=== PATIENT | male | born 1940 | race Caucasian/White ===

== ENCOUNTER → 2018-07-22 | Outpatient (CLI) | payer MEDICARE, OTHER | END | disposition home or self-care (01) | LOC: LABWHC1 17:16 | PROVIDERS: ATTEND Orthopaedic Surgery | DX: Z01.812 Encounter for preprocedural laboratory examination (principal) | CPT/HCPCS: 87070 ==

== ENCOUNTER 2018-07-29 05:44 | Inpatient (IN) | payer MEDICARE, OTHER ==
--- NOTE | 2018-07-28 14:27 | HP ---
HISTORY AND PHYSICAL DATE OF SURGERY: 07/29/2018 Saeid Suresh is a 78-year-old patient seen with symptomatic left knee osteoarthritis. Treatment options were discussed with him. He elected to proceed with left total knee arthroplasty. Consent was obtained. Medical clearance was provided by the [facility]. PAST MEDICAL HISTORY: Hypertension, [id number]-[id number] diabetes. PAST SURGICAL HISTORY: Left knee arthroscopy, carpal tunnel release. DAILY MEDICATIONS: Glucosamine, metformin. ALLERGIES: None. SOCIAL HISTORY: Denies tobacco use. PHYSICAL EVALUATION OF THE LEFT KNEE: Range of motion 0 to 120 degrees. Tenderness along the medial joint line. Crepitus medial patellofemoral compartments and range of motion. Ligaments stable. Hip rotation without pain. Distal neurovascular exam is intact. LEFT KNEE RADIOGRAPHS: Revealed severe osteoarthritic changes. IMPRESSION: 1. Left knee osteoarthritis. 2. Hypertension. 3. Sqv-nafslxu-qlrwmixjg diabetes. PLAN: Left total knee arthroplasty. MMODL / IJN: [id number] /
[2018-07-28 15:02] VITALS: BMI 27.3
[~2018-07-29 05:44] MED LIST: ACETAMINOPHEN TAB 500 MG TAB PO ONE; MELOXICAM 7.5 MG TAB PO ONE; TRANEXAMIC ACID 1,000 MG in SODIUM CHLORIDE 0.9% 100 ML IVPB PRN; TRANEXAMIC ACID 1,000 MG in SODIUM CHLORIDE 0.9% 50 ML IVPB ONE; ceFAZolin IN SWFI 2 GM/20 ML SYRINGE IVP ONE
[2018-07-29] MEDS ORDERED: HYDROmorphone 0.5 MG/0.5 ML SYRINGE IVP PRN ×4 (05:54→08:49)
[2018-07-29] MEDS ORDERED: MIDAZOLAM (PF) 2 MG/2 ML VIAL IV PRN (05:54)
[2018-07-29] MEDS ORDERED: ONDANSETRON 4 MG/2 ML VIAL IVP ONE (05:54)
[2018-07-29] MEDS ORDERED: SCOPOLAMINE 1.5MG/72HR PATCH TRANSDERM ONE (05:54)
[2018-07-29] MEDS ORDERED: DEXAMETHASONE SOD PHOSPHATE 10 MG/ML 1 ML VIAL IV ONE (05:54)
[2018-07-29] MEDS ORDERED: LIDOCAINE 1% 20 ML VIAL (10MG/ML) FOR IV START INTRADERMA PRN (05:54)
[2018-07-29] MEDS: LACTATED RINGERS 1,000 ML IV SCH (06:25)
[2018-07-29 06:28] LABS: Glucose,Whole Blood 93 mg/dL (75-99)
[2018-07-29] MEDS ORDERED: fentaNYL (PF) 50 MCG/ML 2 ML AMP IV ONE (06:40)
[2018-07-29] MEDS ORDERED: LIDOCAINE 1% INJ 10MG/ML (20 ML MDV) ONE (06:57)
[2018-07-29] MEDS ORDERED: SODIUM CHLORIDE 0.9% 100 ML BAG ONE (06:57)
[2018-07-29] MEDS ORDERED: fentaNYL (PF) 50 MCG/ML 2 ML AMP ONE (06:57)
[2018-07-29] MEDS ORDERED: PROPOFOL 10 MG/ML 20 ML VIAL IV ONE (06:57)
[2018-07-29] MEDS ORDERED: MIDAZOLAM 2 MG/2 ML VIAL ONE (06:57)
[2018-07-29] MEDS ORDERED: TRANEXAMIC ACID 1,000 MG/10 ML VIAL ONE (06:57)
[2018-07-29] MEDS ORDERED: ROPIVACAINE 246.25 MG, EPINEPHrine 0.5 MG, KETOROLAC 30 MG, cloNIDine HCL/PF 80 MCG, WA... MISCELLANE ONE ×5 (07:07)
[2018-07-29] MEDS ORDERED: ceFAZolin 3,000 MG in SODIUM CHLORIDE 0.9% IRRIGATIO 3,000 ML IRRIGATION ONE (07:34)
[2018-07-29] MEDS ORDERED: ROPIVACAINE 1,100 MG, SODIUM CHLORIDE 0.9% 500 ML 330 ML MISCELLANE PRN ×2 (07:45)
--- NOTE | 2018-07-29 07:47 | P.ONQ ---
Anesthesiology Proc Note - PNB - Peripheral Nerve Block Performed Left Adductor Canal Single Time Out Performed: Yes ([id number]) Procedure Start Time: 06:40 Procedure Stop Time: 06:50 Indication: Acute Post-Operative Pain, Dx/Pain Location (Left Knee Pain), Requested by physician Catheter: Indwelling Needle Types: On-Q Needle Size: 100mm (4") Needle Gauge: 21 Technique: Ultrasound Injectate: 0.5% Ropivacaine (see comment for volume) Blood Aspirated: No Pain Paresthesia on Injection Noted: No Resistance on Injection: Normal Events: Uneventful and Well Tolerated
[2018-07-29] MEDS ORDERED: LACTATED RINGERS 1,000 ML IV ONE (07:48)
--- NOTE | 2018-07-29 08:48 | P.OP ---
Date of Procedure: 07/29/18 Preoperative Diagnosis: Left knee osteoarthritis Postoperative Diagnosis: Left knee osteoarthritis Procedure(s) Performed: Left total knee arthroplasty Implants: 1. Depuy attune size 7 left cruciate-retaining cemented femur 2. Depuy attune 7 fixed bearing cemented tibial baseplate 3. Depuy attune size 7 fixed bearing 8 mm cruciate-retaining polyethylene tibial insert 4. Depuy attune 38 mm all polyethylene cemented patella Anesthesia: regional (Adductor canal catheter), local, spinal Surgeon: Mario Amaya Hazard Mitigation Officer #1: Dl Coffman Estimated Blood Loss (ml): 50 Pathology: other (Bone) Condition: stable Disposition: PACU Indications for Procedure: 78-year-old patient seen with symptomatic left knee osteoarthritis. After treatment options were discussed, he elected to proceed with total knee arthroplasty Operative Findings: See description of procedure Description of Procedure: Patient was taken to the operative suite after having an adductor canal catheter placed by the department of anesthesia. Patient underwent a spinal anesthetic by the department of anesthesia. Patient was given preoperative IV intake antibiotics and TXA. A well-padded tourniquet was placed about the left lower extremity. The lower extremity was then prepped and draped in the normal sterile orthopedic fashion. The extremity was elevated, a tourniquet was insufflated to 300. A standard anterior incision was made sharply through skin. Dissection was taken down through the subcutaneous soft tissues down to the extensor mechanism. A medial arthrotomy was performed, patella was everted and knee was flexed. There was advanced osteoarthritis noted. I introduced my distal intramedullary femoral drill. I then introduced the distal femoral cutting jig. Alexis TOMPKINS secured the cutting jig with 2 pins. I held retractors in position while Alexis TOMPKINS performed the distal femoral resection through the guide area we now removed her distal femoral cutting guide. We now placed our 4-in-1 femoral cutting block and positioned and it was secured with 2 pins by Alexis TOMPKINS while I held the block in position. The distal femoral finishing was now completed. A proximal tibial cutting guide was positioned. I held the guide in the appropriate position with both hands well Alexis TOMPKINS inserted stabilizing pins into the guide. Proximal tibial cut was made. We now placed a trial femoral component into position, along with an appropriate size tibial tray and insert. We now took the knee through range of motion and had full extension good flexion and good overall soft tissue balance noted. The patella was everted and stabilized with 2 towel clips held by Alexis TOMPKINS while I performed a flush with patellar quad tendon utilizing a fresh sawblade. We templated the patella, appropriate drill holes were made. An appropriate trial patella was positioned, knee was taken through full range of motion with the patella tracking very nicely. The trial patella was removed. Drill holes were made through the femoral component. All trial components were removed after marking off the appropriate rotation of the tibia. Retractors were now positioned along the proximal tibia. An appropriate keel punch was made with the appropriate size tibial guide by myself on Alexis TOMPKINS assisted by holding retractors. At this point appropriate size implants were chosen and opened. The joint was irrigated copiously with pulse lavage mechanical irrigation. The posterior capsule was infiltrated with local analgesic. The wound was irrigated with pulse lavage mechanical irrigation. We mixed antibiotic methylmethacrylate. We placed the knee into flexion. We placed multiple retractors assisted by Alexis TOMPKINS to expose the proximal tibia. Once the methyl methacrylate was ready, the tibial component was cemented into place removing any excess methylmethacrylate form by both myself and Alexis TOMPKINS. The femoral component was cemented into place removing the removing any excess methylmethacrylate performed by both myself and Alexis TOMPKINS. We then inserted the appropriate size polyethylene tibial insert. We made sure that it was locked into position. We took the knee into full extension, and then back in a flexion making sure we had removed any excess methylmethacrylate. The patellar component was then cemented down and secured with clamp. Excess methylmethacrylate removed. We kept the knee in full extension, patellar clamp in position until methylmethacrylate had hardened. Once it had hardened the patellar clamp was removed. The knee was taken through full range of motion. The patella tracked nicely. There was good soft tissue balancing. The tourniquet was now released. Additional hemostasis was achieved via electrocautery. A second gram of TXA was given. The wound again was irrigated with pulse lavage mechanical irrigation. The superficial soft tissues were infiltrated local analgesic. The extensor mechanism was repaired with Vicryl. We checked the repair with range of motion and it was stable. The subcutaneous soft tissues were repaired with Vicryl in layers. The skin was approximated with pernio/Dermabond. Sterile dressings were applied followed by loose web roll and Karri bandage. The patient was transferred to a bed, and taken to recovery in stable and satisfactory condition. Alexis TOMPKINS assisted with this complex procedure.
[2018-07-29] MEDS ORDERED: ONDANSETRON 4 MG/2 ML VIAL IVP PRN (08:49)
[2018-07-29] MEDS ORDERED: HYDROcodone/APAP 5-325MG 1 EACH TAB PO PRN (08:49)
[2018-07-29] MEDS ORDERED: NALOXONE 0.4 MG/ML 1 ML VIAL IV PRN (08:49)
--- NOTE | 2018-07-29 10:26 | XR ---
EXAMINATION TYPE: XR knee limited LT DATE OF EXAM: 07/29/2018 COMPARISON: NONE HISTORY: 78-year-old male evaluation for postoperative abnormality and alignment TECHNIQUE: AP and crosstable lateral views FINDINGS: Images show placement of left total knee arthroplasty. Both distal femoral and proximal tibial compon ents of prosthesis are well seated without periprosthetic fracture. Anterior soft tissue swelling, sc attered soft tissue air as well as intra-articular air compatible with recent operation. Alignment gr ossly anatomic. Vascular calcifications. IMPRESSION: Uncomplicated postoperative appearance left total knee arthroplasty.
[2018-07-29 11:04] LABS: Basophils % (A) 0 %; Eosinophils % (A) 1 %; HGB 12.8 gm/dL (13.0-17.5); Lymphocytes # (A) 0.5 k/uL (1.0-4.8); Lymphocytes % (A) 14 %; MCH 30.3 pg (25.0-35.0); MCHC 32.7 g/dL (31.0-37.0); MCV 92.6 fL (80.0-100.0); Mean Platelet Volume 7.5; Monocytes # (A) 0.1 k/uL (0-1.0); Monocytes % (A) 2 %; Neutrophils % (A) 82 %; Platelet Count 102 k/uL (150-450); RBC 4.21 m/uL (4.30-5.90); RDW 13.7 % (11.5-15.5); WBC 3.7 k/uL (3.8-10.6)
[2018-07-29 11:15] LABS: ALT 34 U/L (21-72); AST 32 U/L (17-59); Albumin 3.6 g/dL (3.5-5.0); Alkaline Phosphatase 77 U/L (38-126); Anion Gap 9 mmol/L; Blood Urea Nitrogen 22 mg/dL (9-20); Calcium 9.1 mg/dL (8.4-10.2); Carbon Dioxide 25 mmol/L (22-30); Chloride 107 mmol/L (98-107); Glucose 175 mg/dL (74-99); Sodium 141 mmol/L (137-145); Total Bilirubin 0.7 mg/dL (0.2-1.3); Total Protein 6.4 g/dL (6.3-8.2)
[2018-07-29 11:31] LABS: Glucose,Whole Blood 145 mg/dL (75-99)
--- NOTE | 2018-07-29 12:18 | P.CONS ---
History of Present Illness - Reason for Consult Consult date: 07/29/18 Medical Management Requesting physician: Mario Amaya - History of Present Illness This is a 78-year-old male patient presented for an elective left total knee arthroplasty. Patient has a known past medical history of prostate cancer in 2000 in which she received treatment with radiation and chemo, diabetes mellitus , osteoarthritis, carpal tunnel syndrome and neuropathy. Patient denies any history of PE, DVT or irregular heart rhythm. Patient reports he had recent stress test prior to surgery per primary care. At this time patient is resting comfortably in bed. Patient denies any chest pain or shortness of breath. Denies nausea vomiting diarrhea. Patient denies any urinary burning or frequency. Review of Systems please refer to HPI otherwise unremarkable Past Medical History Past Medical History: Cancer, Diabetes Mellitus, Osteoarthritis (OA), Prostate Disorder Additional Past Medical History / Comment(s): PVD, carpal tunnel, neuropathy, hx. prostate cancer 2000-tx. w/radiation & chemo, had recent stress test History of Any Multi-Drug Resistant Organisms: None Reported Past Surgical History: Orthopedic Surgery Additional Past Surgical History / Comment(s): arthroscopy right knee, repair of detached retina right eye, carpal tunnel right hand & trigger finger repair, cystoscopy Past Anesthesia/Blood Transfusion Reactions: No Reported Reaction Past Psychological History: No Psychological Hx Reported Smoking Status: Former smoker Past Alcohol Use History: Rare Additional Past Alcohol Use History / Comment(s): quit smoking @age 50, smoked 24 yrs. 2ppd Past Drug Use History: None Reported - Past Family History Mother Family Medical History: No Reported History Medications and Allergies Home Medications Medication Instructions Recorded Confirmed Type metFORMIN HCL [Glucophage] 500 mg PO QAM 08/20/15 07/29/18 History Finasteride [Proscar] 5 mg PO DAILY 07/23/18 07/29/18 History Gabapentin [Neurontin] 100 mg PO TID 07/23/18 07/29/18 History Glucosamine-Chondr 500-400Mg 2 tab PO DAILY 07/23/18 07/29/18 History [Ujtkyggyqqx-Hfwgzp-KOD Tab] Tamsulosin [Flomax] 0.4 mg PO BID 07/23/18 07/29/18 History Allergies Allergy/AdvReac Type Severity Reaction Status Date / Time No Known Allergies Allergy Verified 07/29/18 10:30 Physical Exam Vitals: Vital Signs Temp Pulse Pulse Resp BP Pulse Ox 07/29/18 11:55 94 L 07/29/18 09:54 98.1 F 82 111/59 95 07/29/18 09:45 93 16 113/53 94 L 07/29/18 09:30 80 18 124/61 94 L 07/29/18 09:15 86 18 143/65 92 L 07/29/18 09:03 98.2 F 86 16 118/86 94 L 07/29/18 06:55 64 16 110/55 99 07/29/18 06:17 97.9 F 68 18 131/66 98 Intake and Output 07/28/18 07/29/18 07/29/18 22:59 06:59 14:59 Intake Total 200 1101 Output Total 50 Balance 200 1051 Intake: IV 200 1101 Output: Estimated Blood Loss 50 Head normocephalic Neck supple Lungs clear to auscultation bilaterally no wheezing or crackles Heart regular rate and rhythm S1-S2, no rub or gallop Abdomen is soft nontender nondistended positive bowel sounds no hepatosplenomegaly Extremities no edema. Left knee dressing is clean dry and intact. Good color noted to toes. Neuro alert and orientated to 3 Results CBC & Chem 7: 07/29/18 10:21 07/29/18 10:21 Labs: Abnormal Lab Results - Last 24 Hours (Table) 07/29/18 07/29/18 07/29/18 Range/Units 10:21 10:21 11:29 WBC 3.7 L (3.8-10.6) k/uL RBC 4.21 L (4.30-5.90) m/uL Hgb 12.8 L (13.0-17.5) gm/dL Plt Count 102 L (150-450) k/uL Lymphocytes # 0.5 L (1.0-4.8) k/uL BUN 22 H (9-20) mg/dL Glucose 175 H (74-99) mg/dL POC Glucose (mg/dL) 145 H (75-99) mg/dL Assessment and Plan Assessment: 1. Status post total left knee arthroplasty. Patient is currently postop day 0. Pain meds per the ortho surgical services 2. History of diabetes mellitus. Sliding scale insulin ordered 3. History of prostate cancer. Patient states he received treatment in 2000 4. History of osteoarthritis 5. History of carpal tunnel DVT prophylaxis Lovenox. GI prophylaxis Protonix Planning discharge to rehab Thank you for this consultation we will continue to follow patient closely throughout Time with Patient: Greater than 30 (Greater than 60% of the total time spent in counseling and coordination of care. I performed an examination of the patient and discussed their management with the Nurse Practitioner. I have reviewed the Nurse Practitioner's notes and agree with the documented findings and plan of care)
[2018-07-29] MEDS: INSULIN ASPART (NovoLOG) 100 UNIT/ML VIAL SQ SCH ×3 (13:37→21:18)
[2018-07-29] MEDS: GABAPENTIN 100 MG CAP PO SCH ×2 (16:37→22:39)
[2018-07-29 16:52] LABS: Glucose,Whole Blood 109 mg/dL (75-99)
[2018-07-29] MEDS: ceFAZolin IN SWFI 2 GM/20 ML SYRINGE IVP SCH ×2 (17:04→22:52)
[2018-07-29] MEDS: SODIUM CHLORIDE 0.9% 1,000 ML IV SCH (17:05)
[2018-07-29 20:13] LABS: Glucose,Whole Blood 136 mg/dL (75-99)
[2018-07-29] MEDS: TAMSULOSIN 0.4 MG CAP.ER.24H PO SCH (21:17)
[2018-07-29] MEDS: ENOXAPARIN 30 MG/0.3 ML SYRINGE SQ SCH (21:17)
[2018-07-29] MEDS: SENNOSIDES-DOCUSATE SODIUM 1 EACH TAB PO SCH (21:18)
[2018-07-30 07:15] LABS: Glucose,Whole Blood 100 mg/dL (75-99)
[2018-07-30 07:37] LABS: Basophils % (A) 0 %; Eosinophils # (A) 0.1 k/uL (0-0.7); Eosinophils % (A) 2 %; HCT 34.1 % (39.0-53.0); HGB 11.3 gm/dL (13.0-17.5); Lymphocytes # (A) 0.9 k/uL (1.0-4.8); Lymphocytes % (A) 18 %; MCH 30.6 pg (25.0-35.0); MCHC 33.2 g/dL (31.0-37.0); MCV 92.1 fL (80.0-100.0); Mean Platelet Volume 7.2; Monocytes # (A) 0.4 k/uL (0-1.0); Monocytes % (A) 8 %; Neutrophils # (A) 3.4 k/uL (1.3-7.7); Neutrophils % (A) 71 %; Platelet Count 100 k/uL (150-450); RDW 13.9 % (11.5-15.5); WBC 4.8 k/uL (3.8-10.6)
[2018-07-30 07:59] LABS: ALT 28 U/L (21-72); AST 26 U/L (17-59); Albumin 3.3 g/dL (3.5-5.0); Alkaline Phosphatase 53 U/L (38-126); Anion Gap 8 mmol/L; Blood Urea Nitrogen 22 mg/dL (9-20); Calcium 8.7 mg/dL (8.4-10.2); Carbon Dioxide 26 mmol/L (22-30); Chloride 107 mmol/L (98-107); Glucose 99 mg/dL (74-99); Potassium 4.3 mmol/L (3.5-5.1); Sodium 141 mmol/L (137-145); Total Bilirubin 1.3 mg/dL (0.2-1.3); Total Protein 5.9 g/dL (6.3-8.2)
[2018-07-30] MEDS: SODIUM CHLORIDE 0.9% 1,000 ML IV SCH (08:26)
[2018-07-30] MEDS: LACTATED RINGERS 1,000 ML IV SCH (08:26)
[2018-07-30] MEDS: INSULIN ASPART (NovoLOG) 100 UNIT/ML VIAL SQ SCH ×4 (08:26→21:11)
[2018-07-30] MEDS: ACETAMINOPHEN TAB 325 MG TAB PO PRN ×2 (08:38→15:22)
[2018-07-30] MEDS: GABAPENTIN 100 MG CAP PO SCH ×3 (08:38→21:12)
[2018-07-30] MEDS: PANTOPRAZOLE 40 MG TABLET PO SCH (08:38)
[2018-07-30] MEDS: metFORMIN 500 MG TAB PO SCH (08:38)
[2018-07-30] MEDS: TAMSULOSIN 0.4 MG CAP.ER.24H PO SCH ×2 (08:38→20:57)
[2018-07-30] MEDS: ENOXAPARIN 30 MG/0.3 ML SYRINGE SQ SCH (08:38)
[2018-07-30] MEDS: FINASTERIDE 5 MG TAB PO SCH (08:38)
--- NOTE | 2018-07-30 08:51 | P.PN ---
Progress Note - Text Progress Note Date: 07/30/18 78-year-old male status post left total knee arthroplasty with abductor canal catheter. Patient doing well no motor sensory deficits. He's been ambulating well up and down the [place] multiple times today. Tolerating diet. Patient is to be discharged home today.
--- NOTE | 2018-07-30 11:03 | P.PN ---
Subjective Progress Note Date: 07/30/18 Principal diagnosis: Status post left total knee arthroplasty Patient evaluated at bedside today, his resting comfortably. Patient has worked with physical therapy. He admits to stiffness in the knee in the knee. Denies any fevers or chills. Objective - Vital Signs Vital signs: Vital Signs Temp 98.6 F 07/30/18 08:55 Pulse 71 07/30/18 08:55 Resp 16 07/30/18 08:55 BP 99/59 07/30/18 08:55 Pulse Ox 94 L 07/30/18 08:55 Intake & Output 07/29/18 07/30/18 07/30/18 18:59 06:59 18:59 Intake Total 1401 200 220 Output Total 470 Balance 931 200 220 Intake: IV 1401 Sodium Chloride 0.9% 1, 300 000 ml @ 50 mls/hr IV . Q20H [place] Rx#:[id number] Intake, IV Titration 200 Amount Sodium Chloride 0.9% 1, 200 000 ml @ 50 mls/hr IV . Q20H [place] Rx#:[id number] Oral 220 Output: Urine 420 Estimated Blood Loss 50 Other: Voiding Method Toilet Urinal # Voids 1 - Exam Left lower extremity: Incision is clean, dry, and intact. The exofin fusion tape is in good condition. There is minimal soft tissue swelling and ecchymosis surrounding the medial and lateral aspects of the incision. Calf is soft, no tenderness with palpation. Plantar flexion, dorsiflexion, EHL, FHL are intact. Sensory exam to light touch throughout the extremity is intact, dorsal pedis pulses 2+. - Labs CBC & Chem 7: 07/30/18 07:21 07/30/18 07:21 Labs: Abnormal Lab Results - Last 24 Hours (Table) 07/29/18 07/29/18 07/29/18 Range/Units 10:21 10:21 11:29 WBC 3.7 L (3.8-10.6) k/uL RBC 4.21 L (4.30-5.90) m/uL Hgb 12.8 L (13.0-17.5) gm/dL Hct (39.0-53.0) % Plt Count 102 L (150-450) k/uL Lymphocytes # 0.5 L (1.0-4.8) k/uL BUN 22 H (9-20) mg/dL Glucose 175 H (74-99) mg/dL POC Glucose (mg/dL) 145 H (75-99) mg/dL Total Protein (6.3-8.2) g/dL Albumin (3.5-5.0) g/dL 07/29/18 07/29/18 07/30/18 Range/Units 16:51 20:11 07:13 WBC (3.8-10.6) k/uL RBC (4.30-5.90) m/uL Hgb (13.0-17.5) gm/dL Hct (39.0-53.0) % Plt Count (150-450) k/uL Lymphocytes # (1.0-4.8) k/uL BUN (9-20) mg/dL Glucose (74-99) mg/dL POC Glucose (mg/dL) 109 H 136 H 100 H (75-99) mg/dL Total Protein (6.3-8.2) g/dL Albumin (3.5-5.0) g/dL 07/30/18 07/30/18 Range/Units 07:21 07:21 WBC (3.8-10.6) k/uL RBC 3.70 L (4.30-5.90) m/uL Hgb 11.3 L (13.0-17.5) gm/dL Hct 34.1 L (39.0-53.0) % Plt Count 100 L (150-450) k/uL Lymphocytes # 0.9 L (1.0-4.8) k/uL BUN 22 H (9-20) mg/dL Glucose (74-99) mg/dL POC Glucose (mg/dL) (75-99) mg/dL Total Protein 5.9 L (6.3-8.2) g/dL Albumin 3.3 L (3.5-5.0) g/dL Assessment and Plan Plan: Assessment: 1. Postop day #1 status post left total knee arthroplasty Plan: Pain control, continue current medication GI and DVT prophylaxis, discontinue Lovenox, will start aspirin 325 mg twice a day Wound Care instructions discussed Ice and elevate often, daily dressing changes Continue use of CPM and incentive spirometer Medical recommendations Discharge planning: Patient will be discharged to rehab on 09/29/2018 Time with Patient: Less than 30
[2018-07-30 11:38] LABS: Glucose,Whole Blood 161 mg/dL (75-99)
[2018-07-30] MEDS: FERROUS SULFATE 325 MG TAB PO SCH ×2 (12:25→20:57)
--- NOTE | 2018-07-30 12:37 | P.PN ---
Subjective Progress Note Date: 07/30/18 This is a 78-year-old male patient presented for an elective left total knee arthroplasty. Patient has a known past medical history of prostate cancer in 2000 in which she received treatment with radiation and chemo, diabetes mellitus , osteoarthritis, carpal tunnel syndrome and neuropathy. Patient denies any history of PE, DVT or irregular heart rhythm. Patient reports he had recent stress test prior to surgery per primary care. At this time patient is resting comfortably in bed. Patient denies any chest pain or shortness of breath. Denies nausea vomiting diarrhea. Patient denies any urinary burning or frequency. On 07/30/2018 patient remains alert and oriented 3. Patient is reporting increased pain to left knee. Compared to yesterday. Patient has been up ambulating. She denies chest pain or shortness breath. Patient denies nausea vomiting or diarrhea. Patient's hemoglobin low at 11.3 will add ferrous sulfate at this time. Patient planning to be DC'd to rehab possibly tomorrow Objective - Vital Signs Vital signs: Vital Signs Temp 98.6 F 07/30/18 08:55 Pulse 71 07/30/18 08:55 Resp 16 07/30/18 08:55 BP 99/59 07/30/18 08:55 Pulse Ox 94 L 07/30/18 08:55 Intake & Output 07/29/18 07/30/18 07/30/18 18:59 06:59 18:59 Intake Total 1401 200 220 Output Total 470 Balance 931 200 220 Intake: IV 1401 Sodium Chloride 0.9% 1, 300 000 ml @ 50 mls/hr IV . Q20H [place] Rx#:[id number] Intake, IV Titration 200 Amount Sodium Chloride 0.9% 1, 200 000 ml @ 50 mls/hr IV . Q20H [place] Rx#:[id number] Oral 220 Output: Urine 420 Estimated Blood Loss 50 Other: Voiding Method Toilet Urinal # Voids 1 - Exam Head normocephalic Neck supple Lungs clear to auscultation bilaterally no wheezing or crackles Heart regular rate and rhythm S1-S2, no rub or gallop Abdomen is soft nontender nondistended positive bowel sounds no hepatosplenomegaly Extremities no edema. Left knee dressing is clean dry and intact. Good color noted to toes. Neuro alert and orientated to 3 - Labs CBC & Chem 7: 07/30/18 07:21 07/30/18 07:21 Labs: Abnormal Lab Results - Last 24 Hours (Table) 07/29/18 07/29/18 07/30/18 Range/Units 16:51 20:11 07:13 RBC (4.30-5.90) m/uL Hgb (13.0-17.5) gm/dL Hct (39.0-53.0) % Plt Count (150-450) k/uL Lymphocytes # (1.0-4.8) k/uL BUN (9-20) mg/dL POC Glucose (mg/dL) 109 H 136 H 100 H (75-99) mg/dL Total Protein (6.3-8.2) g/dL Albumin (3.5-5.0) g/dL 07/30/18 07/30/18 07/30/18 Range/Units 07:21 07:21 11:36 RBC 3.70 L (4.30-5.90) m/uL Hgb 11.3 L (13.0-17.5) gm/dL Hct 34.1 L (39.0-53.0) % Plt Count 100 L (150-450) k/uL Lymphocytes # 0.9 L (1.0-4.8) k/uL BUN 22 H (9-20) mg/dL POC Glucose (mg/dL) 161 H (75-99) mg/dL Total Protein 5.9 L (6.3-8.2) g/dL Albumin 3.3 L (3.5-5.0) g/dL Assessment and Plan Assessment: 1. Status post total left knee arthroplasty. Patient is currently postop day 1. Pain meds per the ortho surgical services 2. History of diabetes mellitus. Sliding scale insulin ordered 3. History of prostate cancer. Patient states he received treatment in 2000 4. History of osteoarthritis 5. History of carpal tunnel 6. Anemia. will check iron studies. Will start patient on ferrous sulfate DVT prophylaxis Lovenox. GI prophylaxis Protonix Planning discharge to rehab Thank you for this consultation we will continue to follow patient closely throughout
[2018-07-30 16:45] LABS: Glucose,Whole Blood 130 mg/dL (75-99)
[2018-07-30] MEDS: ASPIRIN 325 MG TAB PO SCH (18:29)
[2018-07-30 20:22] LABS: Glucose,Whole Blood 167 mg/dL (75-99)
[2018-07-30] MEDS: SENNOSIDES-DOCUSATE SODIUM 1 EACH TAB PO SCH (20:56)
[2018-07-31 01:09] VITALS: RESP 16
[2018-07-31] MEDS: SODIUM CHLORIDE 0.9% 1,000 ML IV SCH ×2 (01:24→20:58)
[2018-07-31 07:08] LABS: Glucose,Whole Blood 106 mg/dL (75-99)
[2018-07-31] MEDS: LACTATED RINGERS 1,000 ML IV SCH (08:00)
[2018-07-31] MEDS: INSULIN ASPART (NovoLOG) 100 UNIT/ML VIAL SQ SCH ×4 (08:00→21:02)
[2018-07-31 08:21] LABS: ALT 28 U/L (21-72); AST 24 U/L (17-59); Albumin 3.1 g/dL (3.5-5.0); Alkaline Phosphatase 55 U/L (38-126); Anion Gap 6 mmol/L; Blood Urea Nitrogen 20 mg/dL (9-20); Calcium 8.9 mg/dL (8.4-10.2); Carbon Dioxide 26 mmol/L (22-30); Chloride 107 mmol/L (98-107); Glucose 109 mg/dL (74-99); Potassium 4.2 mmol/L (3.5-5.1); Sodium 139 mmol/L (137-145); Total Bilirubin 1.6 mg/dL (0.2-1.3); Total Protein 5.8 g/dL (6.3-8.2)
[2018-07-31] MEDS: GABAPENTIN 100 MG CAP PO SCH ×3 (08:42→21:01)
[2018-07-31] MEDS: ASPIRIN 325 MG TAB PO SCH (08:42)
[2018-07-31] MEDS: FERROUS SULFATE 325 MG TAB PO SCH ×2 (08:43→20:02)
[2018-07-31] MEDS: metFORMIN 500 MG TAB PO SCH (08:43)
[2018-07-31] MEDS: FINASTERIDE 5 MG TAB PO SCH (08:43)
[2018-07-31] MEDS: TAMSULOSIN 0.4 MG CAP.ER.24H PO SCH ×2 (08:43→20:01)
[2018-07-31] MEDS: PANTOPRAZOLE 40 MG TABLET PO SCH (08:45)
[2018-07-31] MEDS: HYDROcodone/APAP 5-325MG 1 EACH TAB PO PRN ×2 (10:10→21:02)
--- NOTE | 2018-07-31 10:42 | P.PN ---
Subjective Progress Note Date: 07/31/18 Principal diagnosis: Status post left total knee arthroplasty Patient evaluated at bedside today, his resting comfortably. Patient has worked with physical therapy. He admits to stiffness in the knee in the knee. Denies any fevers or chills. Objective - Vital Signs Vital signs: Vital Signs Temp 98.9 F 07/31/18 08:04 Pulse 95 07/31/18 08:04 Resp 16 07/30/18 23:49 BP 118/56 07/31/18 08:04 Pulse Ox 93 L 07/31/18 08:04 Intake & Output 07/30/18 07/31/18 07/31/18 18:59 06:59 18:59 Intake Total 220 280 Output Total 1130 Balance -910 280 Intake: Oral 220 280 Output: Urine 1130 - Exam Left lower extremity: Incision is clean, dry, and intact. The exofin fusion tape is in good condition. There is minimal soft tissue swelling and ecchymosis surrounding the medial and lateral aspects of the incision. Calf is soft, no tenderness with palpation. Plantar flexion, dorsiflexion, EHL, FHL are intact. Sensory exam to light touch throughout the extremity is intact, dorsal pedis pulses 2+. - Labs CBC & Chem 7: 07/30/18 07:21 07/31/18 07:11 Labs: Abnormal Lab Results - Last 24 Hours (Table) 07/30/18 07/30/18 07/30/18 Range/Units 11:36 16:44 20:21 Creatinine (0.66-1.25) mg/dL Glucose (74-99) mg/dL POC Glucose (mg/dL) 161 H 130 H 167 H (75-99) mg/dL Total Bilirubin (0.2-1.3) mg/dL Total Protein (6.3-8.2) g/dL Albumin (3.5-5.0) g/dL 07/31/18 07/31/18 Range/Units 07:07 07:11 Creatinine 0.60 L (0.66-1.25) mg/dL Glucose 109 H (74-99) mg/dL POC Glucose (mg/dL) 106 H (75-99) mg/dL Total Bilirubin 1.6 H (0.2-1.3) mg/dL Total Protein 5.8 L (6.3-8.2) g/dL Albumin 3.1 L (3.5-5.0) g/dL Assessment and Plan Plan: Assessment: 1. Postop day #2 status post left total knee arthroplasty Plan: Pain control, continue current medication GI and DVT prophylaxis, discontinue Lovenox, will start aspirin 325 mg twice a day Wound Care instructions discussed Ice and elevate often, daily dressing changes Continue use of CPM and incentive spirometer Medical recommendations Discharge planning: Likely discharge to rehab tomorrow Time with Patient: Less than 30
[2018-07-31 11:12] LABS: Iron Saturation 9.97 (15.00-50.00)
[2018-07-31 11:45] LABS: Glucose,Whole Blood 114 mg/dL (75-99)
--- NOTE | 2018-07-31 11:57 | P.PN ---
Subjective Progress Note Date: 07/31/18 This is a 78-year-old male patient presented for an elective left total knee arthroplasty. Patient has a known past medical history of prostate cancer in 2000 in which she received treatment with radiation and chemo, diabetes mellitus , osteoarthritis, carpal tunnel syndrome and neuropathy. Patient denies any history of PE, DVT or irregular heart rhythm. Patient reports he had recent stress test prior to surgery per primary care. At this time patient is resting comfortably in bed. Patient denies any chest pain or shortness of breath. Denies nausea vomiting diarrhea. Patient denies any urinary burning or frequency. On 07/30/2018 patient remains alert and oriented 3. Patient is reporting increased pain to left knee. Compared to yesterday. Patient has been up ambulating. She denies chest pain or shortness breath. Patient denies nausea vomiting or diarrhea. Patient's hemoglobin low at 11.3 will add ferrous sulfate at this time. Patient planning to be DC'd to rehab possibly tomorrow On 07/31/2017 patient is alert and oriented 3. Patient is still complaining of some left knee pain with ambulation. Patient did report he had bowel movement this a.m. patient denies chest pain or shortness breath. Patient denies nausea vomiting or diarrhea any urinary burning or frequency Objective - Vital Signs Vital signs: Vital Signs Temp 98.9 F 07/31/18 08:04 Pulse 95 07/31/18 08:04 Resp 16 07/30/18 23:49 BP 118/56 07/31/18 08:04 Pulse Ox 93 L 07/31/18 08:04 Intake & Output 07/30/18 07/31/18 07/31/18 18:59 06:59 18:59 Intake Total 220 280 Output Total 1130 Balance -910 280 Intake: Oral 220 280 Output: Urine 1130 - Exam Head normocephalic Neck supple Lungs clear to auscultation bilaterally no wheezing or crackles Heart regular rate and rhythm S1-S2, no rub or gallop Abdomen is soft nontender nondistended positive bowel sounds no hepatosplenomegaly Extremities no edema. Left knee dressing is clean dry and intact. Good color noted to toes. Neuro alert and orientated to 3 - Labs CBC & Chem 7: 07/30/18 07:21 07/31/18 07:11 Labs: Abnormal Lab Results - Last 24 Hours (Table) 07/30/18 07/30/18 07/31/18 Range/Units 16:44 20:21 07:07 Creatinine (0.66-1.25) mg/dL Glucose (74-99) mg/dL POC Glucose (mg/dL) 130 H 167 H 106 H (75-99) mg/dL Iron (65-175) ug/dL Iron Saturation (15.00-50.00) Total Bilirubin (0.2-1.3) mg/dL Total Protein (6.3-8.2) g/dL Albumin (3.5-5.0) g/dL 07/31/18 07/31/18 07/31/18 Range/Units 07:11 07:11 11:43 Creatinine 0.60 L (0.66-1.25) mg/dL Glucose 109 H (74-99) mg/dL POC Glucose (mg/dL) 114 H (75-99) mg/dL Iron 31 L (65-175) ug/dL Iron Saturation 9.97 L (15.00-50.00) Total Bilirubin 1.6 H (0.2-1.3) mg/dL Total Protein 5.8 L (6.3-8.2) g/dL Albumin 3.1 L (3.5-5.0) g/dL Assessment and Plan Assessment: 1. Status post total left knee arthroplasty. Patient is currently postop day 2. Pain meds per the ortho surgical services 2. History of diabetes mellitus. Sliding scale insulin ordered 3. History of prostate cancer. Patient states he received treatment in 2000 4. History of osteoarthritis 5. History of carpal tunnel 6. Iron deficiency Anemia. Will start patient on ferrous sulfate DVT prophylaxis aspirin. GI prophylaxis Protonix Planning discharge to rehab Thank you for this consultation we will continue to follow patient closely throughout
[2018-07-31 16:59] LABS: Glucose,Whole Blood 127 mg/dL (75-99)
[2018-07-31] MEDS: SENNOSIDES-DOCUSATE SODIUM 1 EACH TAB PO SCH (20:02)
[2018-07-31 20:42] LABS: Glucose,Whole Blood 172 mg/dL (75-99)
[2018-08-01] MEDS: LACTATED RINGERS 1,000 ML IV SCH (05:37)
[2018-08-01 06:52] LABS: Glucose,Whole Blood 103 mg/dL (75-99)
[2018-08-01 07:54] VITALS: BP 155/75; PULSE 87; TEMP 98.2
[2018-08-01 08:14] LABS: Basophils % (A) 1 %; Eosinophils # (A) 0.1 k/uL (0-0.7); Eosinophils % (A) 1 %; HCT 34.1 % (39.0-53.0); HGB 11.5 gm/dL (13.0-17.5); Lymphocytes % (A) 16 %; MCH 31.1 pg (25.0-35.0); MCHC 33.7 g/dL (31.0-37.0); MCV 92.4 fL (80.0-100.0); Mean Platelet Volume 7.7; Monocytes # (A) 0.4 k/uL (0-1.0); Monocytes % (A) 8 %; Neutrophils # (A) 4.2 k/uL (1.3-7.7); Neutrophils % (A) 72 %; Platelet Count 107 k/uL (150-450); RBC 3.68 m/uL (4.30-5.90); RDW 13.5 % (11.5-15.5); WBC 5.9 k/uL (3.8-10.6)
[2018-08-01 08:18] LABS: ALT 26 U/L (21-72); AST 26 U/L (17-59); Albumin 3.6 g/dL (3.5-5.0); Alkaline Phosphatase 71 U/L (38-126); Anion Gap 6 mmol/L; Blood Urea Nitrogen 21 mg/dL (9-20); Calcium 9.3 mg/dL (8.4-10.2); Carbon Dioxide 26 mmol/L (22-30); Chloride 106 mmol/L (98-107); Glucose 128 mg/dL (74-99); Potassium 4.2 mmol/L (3.5-5.1); Sodium 138 mmol/L (137-145); Total Bilirubin 1.9 mg/dL (0.2-1.3); Total Protein 6.5 g/dL (6.3-8.2)
[2018-08-01] MEDS: INSULIN ASPART (NovoLOG) 100 UNIT/ML VIAL SQ SCH ×2 (08:49→11:48)
[2018-08-01] MEDS: GABAPENTIN 100 MG CAP PO SCH (09:03)
[2018-08-01] MEDS: metFORMIN 500 MG TAB PO SCH (09:03)
[2018-08-01] MEDS: TAMSULOSIN 0.4 MG CAP.ER.24H PO SCH (09:03)
[2018-08-01] MEDS: ASPIRIN 325 MG TAB PO SCH (09:03)
[2018-08-01] MEDS: PANTOPRAZOLE 40 MG TABLET PO SCH (09:03)
[2018-08-01] MEDS: FINASTERIDE 5 MG TAB PO SCH (09:03)
[2018-08-01] MEDS: FERROUS SULFATE 325 MG TAB PO SCH (09:03)
[2018-08-01] MEDS: HYDROcodone/APAP 5-325MG 1 EACH TAB PO PRN (09:07)
[2018-08-01 11:11] LABS: Glucose,Whole Blood 120 mg/dL (75-99)
--- NOTE | 2018-08-01 12:23 | P.PN ---
Subjective Progress Note Date: 08/01/18 Principal diagnosis: Status post left total knee arthroplasty Patient evaluated at bedside today, his resting comfortably. Patient has worked with physical therapy. He admits to stiffness in the knee in the knee. Denies any fevers or chills. Objective - Vital Signs Vital signs: Vital Signs Temp 98.2 F 08/01/18 07:16 Pulse 87 08/01/18 08:00 Resp 16 08/01/18 08:00 BP 155/75 08/01/18 07:16 Pulse Ox 95 08/01/18 07:16 Intake & Output 07/31/18 08/01/18 08/01/18 18:59 06:59 18:59 Intake Total 560 Balance 560 Intake: Oral 560 Other: Voiding Method Toilet Urinal # Voids 2 - Exam Left lower extremity: Incision is clean, dry, and intact. The exofin fusion tape is in good condition. There is minimal soft tissue swelling and ecchymosis surrounding the medial and lateral aspects of the incision. Calf is soft, no tenderness with palpation. Plantar flexion, dorsiflexion, EHL, FHL are intact. Sensory exam to light touch throughout the extremity is intact, dorsal pedis pulses 2+. - Labs CBC & Chem 7: 08/01/18 07:12 08/01/18 07:12 Labs: Abnormal Lab Results - Last 24 Hours (Table) 07/31/18 07/31/18 08/01/18 Range/Units 16:57 20:40 06:50 RBC (4.30-5.90) m/uL Hgb (13.0-17.5) gm/dL Hct (39.0-53.0) % Plt Count (150-450) k/uL BUN (9-20) mg/dL Glucose (74-99) mg/dL POC Glucose (mg/dL) 127 H 172 H 103 H (75-99) mg/dL Total Bilirubin (0.2-1.3) mg/dL 08/01/18 08/01/18 08/01/18 Range/Units 07:12 07:12 11:10 RBC 3.68 L (4.30-5.90) m/uL Hgb 11.5 L (13.0-17.5) gm/dL Hct 34.1 L (39.0-53.0) % Plt Count 107 L (150-450) k/uL BUN 21 H (9-20) mg/dL Glucose 128 H (74-99) mg/dL POC Glucose (mg/dL) 120 H (75-99) mg/dL Total Bilirubin 1.9 H (0.2-1.3) mg/dL Assessment and Plan Plan: Assessment: 1. Postop day #3 status post left total knee arthroplasty Plan: Pain control, plan for discharge on [place] 5 mg GI and DVT prophylaxis, aspirin 325 mg daily Wound Care instructions discussed Ice and elevate often, daily dressing changes Continue use of CPM and incentive spirometer Medical recommendations Discharge planning: Discharged to rehab today Time with Patient: Less than 30
--- NOTE | 2018-08-01 12:27 | P.DS ---
Providers Date of admission: 07/29/18 05:44 Expected date of discharge: 08/01/18 Attending physician: Mario Amaya Consults: 07/29/18 08:49 Consult Physician Routine Consulting Provider: Hermelindo Zaragoza Consult Reason/Comments: Medical management Do you want consulting provider notified?: Yes Primary care physician: [facility] Hospital Course: Date of admission: 07/29/2018 Date of discharge: 08/01/2018 Admission diagnosis: Status post left total knee arthroplasty Discharge diagnosis: Same Attending physician: Dr. Amaya Surgical procedures: Left total knee arthroplasty Brief history: Patient is a 78-year-old male with a history of progressive primary left knee osteoarthritis. At this point patient has failed conservative treatment measures and has opted to proceed with a elective left total knee arthroplasty. Hospital course: Details of patient's surgery can be found in operative report. Patient tolerated the procedure well and was subsequently transported to orthopedic floor. Patient's orthopeidc and medical care was provided daily. Patient had daily laboratory tests performed for evaluation of overall blood counts. Patient had daily physical therapy to include strengthening range of motion as well as education with walker ambulation. Patient had daily CPM usage as part of their physical therapy program. Patient was treated with aspirin for their postoperative DVT prophylaxis during their inpatient stay. Patient was noted to have a relatively uneventful postoperative course. Patient reported satisfactory pain control with oral pain medications by postoperative day 0. Patient showed satisfactory progress with physical therapy. Patient moved steadily through the program and had no difficulty meeting the goals by postoperative day 3. Given patient's otherwise satisfactory course and having met physical therapy goals, plan is to discharge patient rehab on postoperative day 3. Discharge condition/disposition: Patient will be discharged home in stable condition. Discharge medications: Instructions are given on resumption of patient's normal daily medications per primary care recommendation, in addition patient will be prescribed Sedan 5 mg/325 mg, aspirin. 25 mg. Discharge instructions: 1. Wound care and infection precautions, keep incision dry and covered while showering, no lotions, creams, moisturizers. No soaking, tubs, pools, hottubs. Do not scrub over the incision. 2. Weight-bear as tolerated with walker / cane until follow-up. 3. Ice and elevate when necessary. Do not exceed 20 minutes per hour with ice pack. 4. Utilize compression sleeve until seen at first follow up appointment. 5. Visiting nursing care. 6. Home physical therapy including home CPM. 7. Pain meds and anticoagulants per prescription. 8. Pain medication has potential to cause constipation. Increase oral fluid and fiber intake. Contact primary care provider if you have not had a bowel movement within 48 hours after discharge 9. No anti-inflammatory medication until discussed at first post operative visit, this including Motrin, Aleve, Mobic, Diclofenac. 10. Follow up in office at 2 weeks postop with Alexis Coffman PA-C 11. Follow up with your primary care doctor 7-10 days after discharge. 12. Contact [facility] with any questions, . Procedures: Left total knee arthroplasty Patient Condition at Discharge: Good Plan - Discharge Summary Discharge Rx Participant: Yes New Discharge Prescriptions: New Aspirin 325 mg PO DAILY #30 tab Hydrocodone/Acetaminophen [Sedan 5-325] 1 each PO Q6HR PRN #28 tab PRN Reason: Pain Ferrous Sulfate [Feosol] 325 mg PO DAILY #30 tab No Action metFORMIN HCL [Glucophage] 500 mg PO QAM Gabapentin [Neurontin] 100 mg PO TID Finasteride [Proscar] 5 mg PO DAILY Glucosamine-Chondr 500-400Mg [Ytkxyjjksjd-Xpqqnf-YCQ Tab] 2 tab PO DAILY Tamsulosin [Flomax] 0.4 mg PO BID Discharge Medication List metFORMIN HCL [Glucophage] 500 mg PO QAM 08/20/15 [History] Finasteride [Proscar] 5 mg PO DAILY 07/23/18 [History] Gabapentin [Neurontin] 100 mg PO TID 07/23/18 [History] Glucosamine-Chondr 500-400Mg [Rdablyuocwj-Qrksgu-VXC Tab] 2 tab PO DAILY [History] Tamsulosin [Flomax] 0.4 mg PO BID 07/23/18 [History] Aspirin 325 mg PO DAILY #30 tab 08/01/18 [Rx] Ferrous Sulfate [Feosol] 325 mg PO DAILY #30 tab 08/01/18 [Rx] Hydrocodone/Acetaminophen [Sedan 5-325] 1 each PO Q6HR PRN #28 tab 08/01/18 [Rx] Follow up Appointment(s)/Referral(s): Dl Coffman PAC [PHYSICIAN PHOTOGRAPH INSPECTOR] - 08/19/18 1:50 pm Activity/Diet/Wound Care/Special Instructions: Orthopedic Discharge Instructions: 1. Wound care and infection precautions, keep incision dry and covered while showering, no lotions, creams, moisturizers. No soaking, pools, hot tubs. Do not scrub over incision. 2. Weight-bear as tolerated with walker / cane until follow-up. 3. Ice and elevate when necessary. Do not exceed 20 minutes per hour with ice pack. 4. Utilize compression sleeve until seen at first follow up appointment. 5. Pain meds and anticoagulants per prescription. 6. Pain medication has potential to cause constipation. Increase oral fluid and fiber intake. Contact primary care provider if you have not had a bowel movement within 48 hours after discharge. 7. No anti-inflammatory medication until discussed at first post operative visit, this including Motrin, Aleve, Mobic, Diclofenac. 8. Follow up in office at 2 weeks postop with Alexis Coffman PA-C 9. Follow up with your primary care doctor 7-10 days after discharge. 10. Contact [facility] with any questions, . Discharge Disposition: TRANSFER TO SNF/ECF
--- NOTE | 2018-08-01 14:18 | P.PN ---
Subjective Progress Note Date: 08/01/18 This is a 78-year-old male patient presented for an elective left total knee arthroplasty. Patient has a known past medical history of prostate cancer in 2000 in which she received treatment with radiation and chemo, diabetes mellitus , osteoarthritis, carpal tunnel syndrome and neuropathy. Patient denies any history of PE, DVT or irregular heart rhythm. Patient reports he had recent stress test prior to surgery per primary care. At this time patient is resting comfortably in bed. Patient denies any chest pain or shortness of breath. Denies nausea vomiting diarrhea. Patient denies any urinary burning or frequency. On 07/30/2018 patient remains alert and oriented 3. Patient is reporting increased pain to left knee. Compared to yesterday. Patient has been up ambulating. She denies chest pain or shortness breath. Patient denies nausea vomiting or diarrhea. Patient's hemoglobin low at 11.3 will add ferrous sulfate at this time. Patient planning to be DC'd to rehab possibly tomorrow On 07/31/2017 patient is alert and oriented 3. Patient is still complaining of some left knee pain with ambulation. Patient did report he had bowel movement this a.m. patient denies chest pain or shortness breath. Patient denies nausea vomiting or diarrhea any urinary burning or frequency On 08/01/2017 patient remains alert and oriented 3. Patient to be DC'd to [facility] today. At this time patient denies chest pain or shortness of breath. Patient denies nausea vomiting or diarrhea. Patient denies any urinary burning or frequency. Objective - Vital Signs Vital signs: Vital Signs Temp 98.2 F 08/01/18 07:16 Pulse 87 08/01/18 08:00 Resp 16 08/01/18 08:00 BP 155/75 08/01/18 07:16 Pulse Ox 95 08/01/18 07:16 Intake & Output 07/31/18 08/01/18 08/01/18 18:59 06:59 18:59 Intake Total 560 Balance 560 Intake: Oral 560 Other: Voiding Method Toilet Urinal # Voids 2 4 - Exam Head normocephalic Neck supple Lungs clear to auscultation bilaterally no wheezing or crackles Heart regular rate and rhythm S1-S2, no rub or gallop Abdomen is soft nontender nondistended positive bowel sounds no hepatosplenomegaly Extremities no edema. Left knee dressing is clean dry and intact. Good color noted to toes. Neuro alert and orientated to 3 - Labs CBC & Chem 7: 08/01/18 07:12 08/01/18 07:12 Labs: Abnormal Lab Results - Last 24 Hours (Table) 07/31/18 07/31/18 08/01/18 Range/Units 16:57 20:40 06:50 RBC (4.30-5.90) m/uL Hgb (13.0-17.5) gm/dL Hct (39.0-53.0) % Plt Count (150-450) k/uL BUN (9-20) mg/dL Glucose (74-99) mg/dL POC Glucose (mg/dL) 127 H 172 H 103 H (75-99) mg/dL Total Bilirubin (0.2-1.3) mg/dL 08/01/18 08/01/18 08/01/18 Range/Units 07:12 07:12 11:10 RBC 3.68 L (4.30-5.90) m/uL Hgb 11.5 L (13.0-17.5) gm/dL Hct 34.1 L (39.0-53.0) % Plt Count 107 L (150-450) k/uL BUN 21 H (9-20) mg/dL Glucose 128 H (74-99) mg/dL POC Glucose (mg/dL) 120 H (75-99) mg/dL Total Bilirubin 1.9 H (0.2-1.3) mg/dL Assessment and Plan Assessment: 1. Status post total left knee arthroplasty. Patient is currently postop day 3. Pain meds per the ortho surgical services. She has been cleared for discharge from orthopedic standpoint. Patient will be DC'd on aspirin for DVT prophylaxis. Pain meds per surgical services 2. History of diabetes mellitus. Sliding scale insulin ordered 3. History of prostate cancer. Patient states he received treatment in 2000 4. History of osteoarthritis 5. History of carpal tunnel 6. Iron deficiency Anemia. Will start patient on ferrous sulfate DVT prophylaxis aspirin. GI prophylaxis Protonix Patient to be DC'd to [facility] and followed by dr. roca Thank you for this consultation we will continue to follow patient closely throughout
== END 2018-08-01 15:53 | DRG 470 ==
LOC: 2ORMAIN 05:44 → 4SSUR 08:56
PROVIDERS: ADMIT Orthopaedic Surgery; ATTEND Orthopaedic Surgery
PROC: 0SRD0J9 Replacement of Left Knee Joint with Synthetic Substitute, Cemented, Open Approach (ICD-10-PCS; principal; 2018-07-29 07:00)
DX: M17.12 Unilateral primary osteoarthritis, left knee (principal); D50.9 Iron deficiency anemia, unspecified; E11.40 Type 2 diabetes mellitus with diabetic neuropathy, unspecified; I10 Essential (primary) hypertension; Z79.84 Long term (current) use of oral hypoglycemic drugs; Z79.899 Other long term (current) drug therapy; Z85.46 Personal history of malignant neoplasm of prostate; Z87.891 Personal history of nicotine dependence; Z92.3 Personal history of irradiation; Z92.21 Personal history of antineoplastic chemotherapy; G56.00 Carpal tunnel syndrome, unspecified upper limb
CPT/HCPCS: 80053; 82728; 83540; 83550; 85025; 88300; 94760

== ENCOUNTER 2018-11-03 13:08 | Inpatient (IN) | payer MEDICARE, OTHER ==
--- NOTE | 2018-11-03 14:37 | ED ---
Extremity Problem HPI - General Chief complaint: Extremity Problem,Nontraumatic Stated complaint: lt ankle pain Time Seen by Provider: 11/03/18 14:13 Source: patient Mode of arrival: ambulatory Limitations: no limitations - History of Present Illness Initial comments: Patient is a 78-year-old male presents emergency department with pain and swelling to left ankle. Patient reports in July he had a lateral knee arthroplasty that has healed without issues. Patient reports over the course of the last 10 days he has developed swelling along the ankle that has progressed proximally to his lower leg causing tightness. Patient reports"pressure" in his lower leg that is exacerbated with walking. Patient reports seeking medical help at the [facility] and he was placed on 10 days of Keflex. Patient reports that the [facility] also performed a venous Doppler and placed him on 3 days of Xerelto prophylactically for DVT. Patient reports over the course of the last 10 days the swelling and pain has not improved. Patient also reports a difference in t emperatures between the left and right leg. Patient denies fever, shortness of breath, chest pain, chest tightness, headache, dizziness, lightheadedness. Patient denies any erythema around the ankle or lower leg. Patient reports mild numbness and tingling on the toes but states that is baseline due to existent diabetic neuropathy. Patient denies traumatic injuries to his left lower extremity. Patient reports bilateral lower leg skin discoloration but states that this is baseline. - Related Data Home Medications Medication Instructions Recorded Confirmed metFORMIN HCL [Glucophage] 500 mg PO QAM 08/20/15 11/03/18 Finasteride [Proscar] 5 mg PO DAILY 07/23/18 11/03/18 Glucosamine-Chondr 500-400Mg 2 tab PO DAILY 07/23/18 11/03/18 Tamsulosin [Flomax] 0.4 mg PO BID 07/23/18 11/03/18 Previous Rx's Medication Instructions Recorded Aspirin 325 mg PO DAILY #30 tab 08/01/18 Ferrous Sulfate [Feosol] 325 mg PO DAILY #30 tab 08/01/18 Allergies Allergy/AdvReac Type Severity Reaction Status Date / Time No Known Allergies Allergy Verified 11/03/18 13:15 Review of Systems ROS Statement: Those systems with pertinent positive or pertinent negative responses have been documented in the HPI. ROS Other: All systems not noted in ROS Statement are negative. Past Medical History Past Medical History: Cancer, Diabetes Mellitus, Osteoarthritis (OA), Prostate Disorder Additional Past Medical History / Comment(s): PVD, carpal tunnel, neuropathy, hx. prostate cancer 2000-tx. w/radiation & chemo, had recent stress test History of Any Multi-Drug Resistant Organisms: None Reported Past Surgical History: Orthopedic Surgery Additional Past Surgical History / Comment(s): arthroscopy right knee, repair of detached retina right eye, carpal tunnel right hand & trigger finger repair, cystoscopy Past Anesthesia/Blood Transfusion Reactions: No Reported Reaction Past Psychological History: No Psychological Hx Reported Smoking Status: Former smoker Past Alcohol Use History: Rare Past Drug Use History: None Reported - Past Family History Mother Family Medical History: No Reported History General Exam Limitations: no limitations General appearance: alert, in no apparent distress Head exam: Present: atraumatic, normocephalic, normal inspection Eye exam: Present: normal appearance Neck exam: Present: normal inspection Respiratory exam: Present: normal lung sounds bilaterally Cardiovascular Exam: Present: regular rate, normal rhythm, normal heart sounds Left Upper Leg exam: Present: normal inspection, full ROM Knee exam: Present: normal inspection, full ROM Lower Leg exam: Present: tenderness, swelling (No pitting), ecchymosis, erythema, Homans' sign. Absent: abrasion, laceration, crepitus, dislocation Ankle exam: Present: tenderness (Lateral medial malleoli. Pain in the Achilles region.), swelling. Absent: full ROM (Limited due to pain), abrasion, laceration, ecchymosis, deformity, dislocation, anterior draw sign Foot/Toe exam: Present: swelling (Mild swelling extending from the ankle). Absent: normal inspection, abrasion, laceration, tenderness at base of 5th metatarsal Neurovascular tendon exam: Present: no vascular compromise. Absent: pallor Gait: observed and limited by pain Neurological exam: Present: alert, oriented X3 Psychiatric exam: Present: normal affect, normal mood Skin exam: Present: warm, intact, normal color Course Vital Signs 11/03/18 11/03/18 13:13 18:18 Temperature 98.6 F Pulse Rate 93 88 Respiratory 20 18 Rate Blood Pressure 159/77 126/59 O2 Sat by Pulse 97 95 Oximetry Medical Decision Making - Medical Decision Making Patient is 78-year-old male presenting to emergency Department with swelling to the left lower leg and ankle. X-rays are showing possible signs of osteomyelitis. Ultrasound was negative for DVT. CBC, CMP, UA, CRP and blood cultures were obtained. Patient was given Rocephin and started on a Vanco. At this time patient will be admitted. Admitting physician is Dr. Luevano. - Lab Data Result diagrams: 11/03/18 17:33 11/03/18 17:33 Lab Results 11/03/18 11/03/18 11/03/18 Range/Units 17:33 17:33 17:33 WBC 5.5 (3.8-10.6) k/uL RBC 4.64 (4.30-5.90) m/uL Hgb 13.8 (13.0-17.5) gm/dL Hct 41.3 (39.0-53.0) % MCV 89.0 (80.0-100.0) fL MCH 29.8 (25.0-35.0) pg MCHC 33.5 (31.0-37.0) g/dL RDW 14.7 (11.5-15.5) % Plt Count 133 L (150-450) k/uL Neutrophils % 69 % Lymphocytes % 18 % Monocytes % 8 % Eosinophils % 2 % Basophils % 1 % Neutrophils # 3.8 (1.3-7.7) k/uL Lymphocytes # 1.0 (1.0-4.8) k/uL Monocytes # 0.4 (0-1.0) k/uL Eosinophils # 0.1 (0-0.7) k/uL Basophils # 0.0 (0-0.2) k/uL Sodium 141 (137-145) mmol/L Potassium 4.3 (3.5-5.1) mmol/L Chloride 105 (98-107) mmol/L Carbon Dioxide 26 (22-30) mmol/L Anion Gap 10 mmol/L BUN 13 (9-20) mg/dL Creatinine 0.53 L (0.66-1.25) mg/dL Est GFR (CKD-EPI)AfAm >90 (>60 ml/min/1.73 sqM) Est GFR (CKD-EPI)NonAf >90 (>60 ml/min/1.73 sqM) Glucose 94 (74-99) mg/dL Plasma Lactic Acid Ivan 1.1 (0.7-2.0) mmol/L Calcium 10.0 (8.4-10.2) mg/dL Total Bilirubin 1.2 (0.2-1.3) mg/dL AST 40 (17-59) U/L ALT 21 (21-72) U/L Alkaline Phosphatase 109 (38-126) U/L C-Reactive Protein 7.4 (<10.0) mg/L Total Protein 8.1 (6.3-8.2) g/dL Albumin 4.5 (3.5-5.0) g/dL Disposition Clinical Impression: Leg swelling Disposition: ADMITTED IP TO THIS HOSP Is patient prescribed a controlled substance at d/c from ED?: No Time of Disposition: 17:00
--- NOTE | 2018-11-03 15:10 | XR ---
EXAMINATION TYPE: XR tibia fibula LT DATE OF EXAM: 11/03/2018 CLINICAL HISTORY: Left ankle pain and swelling and left lower extremity pain and swelling. TECHNIQUE: Two views of the left leg are obtained. COMPARISON: None. FINDINGS: There is no acute fracture or dislocation seen in the left tibia or fibula. There is gener alized subcutaneous edema of the left lower extremity and generalized osseous demineralization. Left knee arthroplasty maintains normal alignment without periprosthetic lucency. No radiopaque foreign krystin dy is appreciated however phleboliths are noted. Ankle mortise maintains normal alignment. No subcuta neous emphysema is seen. No osseous erosion or periosteal reaction is appreciated. There is cortical thickening of the mid tibial diaphysis measuring up to 1.5 cm. This is measured on the lateral view. Intervening serpiginous areas of lucency could represent sequestrum of osteomyelitis or vascular groo ves. Small suprapatellar joint effusion is also seen. IMPRESSION: Generalized lower extremity soft tissue swelling with cortical thickening of the mid tibi al diaphysis on the lateral view. This can be seen as sequela of osteomyelitis and could be correlate d with three-phase bone scan.
--- NOTE | 2018-11-03 15:12 | XR ---
EXAMINATION TYPE: XR ankle complete LT DATE OF EXAM: 11/03/2018 CLINICAL HISTORY: Left ankle pain and swelling TECHNIQUE: Frontal, lateral and oblique images of the left ankle are obtained. COMPARISON: None. FINDINGS: There is no acute fracture/dislocation evident in the left ankle. The ankle mortise congr uent is maintained. There is generalized osseous demineralization. Generalized soft tissue swelling i s most pronounced over the low ankle joint. Atherosclerosis is seen. Well-corticated fragment distal to the fibula suggest sequela of prior trauma. No periosteal reaction or cortical erosion. IMPRESSION: There is no acute fracture or dislocation in the left ankle.
--- NOTE | 2018-11-03 16:20 | US ---
EXAMINATION TYPE: US venous doppler duplex LE LT DATE OF EXAM: 11/03/2018 4:03 PM COMPARISON: NONE CLINICAL HISTORY: Pain. SIDE PERFORMED: Left TECHNIQUE: The lower extremity deep venous system is examined utilizing real time linear array sonog elieser with graded compression, doppler sonography and color-flow sonography. VESSELS IMAGED: External Iliac Vein (EIV) Common Femoral Vein Deep Femoral Vein Greater Saphenous Vein * Femoral Vein Popliteal Vein Small Saphenous Vein * Proximal Calf Veins (* superficial vessels) Left Leg: Negative for DVT IMPRESSION: 1. No diagnostic evidence of DVT.
[2018-11-03] MEDS ORDERED: VANCOMYCIN 1,500 MG in SODIUM CHLORIDE 0.9% 250 ML IVPB STA (16:59)
[2018-11-03] MEDS ORDERED: SODIUM CHLORIDE 0.9% 1,000 ML IV STA (16:59)
[2018-11-03] MEDS ORDERED: cefTRIAXone IN SWFI 1,000 MG/10 ML SYRINGE IVP STA (17:00)
[2018-11-03] MEDS ORDERED: VANCOMYCIN IV PER PHARMACY 1 EACH MISC MISCELLANE PRN (17:04)
[2018-11-03] MEDS ORDERED: MORPHINE SULFATE 4 MG/ML SYRINGE IV PRN (17:24)
[2018-11-03] MEDS ORDERED: IBUPROFEN 400 MG TAB PO PRN (17:24)
[2018-11-03] MEDS ORDERED: ACETAMINOPHEN TAB 325 MG TAB PO PRN (17:24)
[2018-11-03] MEDS ORDERED: HYDROcodone/APAP 5-325MG 1 EACH TAB PO PRN (17:24)
[2018-11-03] MEDS ORDERED: ONDANSETRON 4 MG/2 ML VIAL IVP PRN (17:24)
[2018-11-03] MEDS ORDERED: NALOXONE 0.4 MG/ML 1 ML VIAL IV PRN (17:24)
[2018-11-03 17:52] LABS: Basophils % (A) 1 %; Eosinophils # (A) 0.1 k/uL (0-0.7); Eosinophils % (A) 2 %; HCT 41.3 % (39.0-53.0); HGB 13.8 gm/dL (13.0-17.5); Lymphocytes % (A) 18 %; MCH 29.8 pg (25.0-35.0); MCHC 33.5 g/dL (31.0-37.0); Mean Platelet Volume 7.8; Monocytes # (A) 0.4 k/uL (0-1.0); Monocytes % (A) 8 %; Neutrophils # (A) 3.8 k/uL (1.3-7.7); Neutrophils % (A) 69 %; Platelet Count 133 k/uL (150-450); RBC 4.64 m/uL (4.30-5.90); RDW 14.7 % (11.5-15.5); WBC 5.5 k/uL (3.8-10.6)
[2018-11-03 18:13] LABS: ALT 21 U/L (21-72); AST 40 U/L (17-59); Albumin 4.5 g/dL (3.5-5.0); Alkaline Phosphatase 109 U/L (38-126); Anion Gap 10 mmol/L; Blood Urea Nitrogen 13 mg/dL (9-20); C Reactive Protein 7.4 mg/L (<10.0); Carbon Dioxide 26 mmol/L (22-30); Chloride 105 mmol/L (98-107); Glucose 94 mg/dL (74-99); Potassium 4.3 mmol/L (3.5-5.1); Sodium 141 mmol/L (137-145); Total Bilirubin 1.2 mg/dL (0.2-1.3); Total Protein 8.1 g/dL (6.3-8.2)
[2018-11-03 18:45] LABS: Appearance,Urine Clear (Clear); Bilirubin,Urine Negative (Negative); Blood,Urine Negative (Negative); Color,Urine Light Yellow; Glucose,Urine (UA) Negative (Negative); Ketones,Urine Negative (Negative); Leukocyte Esterase,Urine Negative (Negative); Nitrite,Urine Negative (Negative); Protein,Urine Negative (Negative); Specific Gravity,Urine 1.011 (1.001-1.035); Urobilinogen,Urine <2.0 mg/dL (<2.0)
[2018-11-04] MEDS ORDERED: VANCOMYCIN 1,500 MG in SODIUM CHLORIDE 0.9% 250 ML IVPB SCH ×2
[2018-11-04] MEDS: VANCOMYCIN 1,500 MG in SODIUM CHLORIDE 0.9% 250 ML IVPB SCH ×2 (05:58→17:07)
[2018-11-04 06:29] VITALS: BMI 28.1
[2018-11-04 07:08] LABS: Glucose,Whole Blood 101 mg/dL (75-99)
[2018-11-04] MEDS: INSULIN ASPART (NovoLOG) 100 UNIT/ML VIAL SQ SCH ×4 (07:19→21:14)
[2018-11-04] MEDS ORDERED: ALPRAZolam 0.25 MG TAB PO PRN (10:56)
[2018-11-04] MEDS: HEPARIN SODIUM,PORCINE 5,000 UNIT/ML 1 ML VIAL SQ SCH ×3 (11:28→21:17)
[2018-11-04 12:20] LABS: Glucose,Whole Blood 103 mg/dL (75-99)
[2018-11-04] MEDS ORDERED: TEMAZEPAM 15 MG CAP PO PRN (13:38)
--- NOTE | 2018-11-04 16:37 | P.CNOR ---
History of Present Illness - [facility] Consult date: 11/04/18 Consult reason: other History of present illness: Patient is a 78-year-old male who presented to [facility] yesterday with regards to swelling and discomfort of the left ankle. Patient admits to discomfort and swelling of the lower extremity for about 2 weeks. He first was evaluated by the [facility], was placed on Keflex and an oral anti coagulant. He reported to hospital yesterday because symptoms hadn't improved. Multiple xray were done on the tibia and ankle, also a doppler of the lower ext remity. Xrays revealed no fractures or dislocations. Cortical thickening was noted in mid tibia, radiologist commented on possible osteomylitis. She was admitted to hospital under internal medicine. Patient evaluated at bedside, Dr. Amaya was present to examine patient. He admits to no discomfort of the knee, no fever or chills. He denies any recent trauma involving the knee. He notes most of the discomfort in the ankle and munoz, but he admits it has improved since being admitted to hospital. No other orthopedic complaints at this time. Review of Systems Constitutional: Reports as per [facility] Past Medical History Past Medical History: Cancer, Diabetes Mellitus, Osteoarthritis (OA), Prostate Disorder Additional Past Medical History / Comment(s): PVD, carpal tunnel, neuropathy, hx. prostate cancer 2000-tx. w/radiation & chemo, had recent stress test History of Any Multi-Drug Resistant Organisms: None Reported Past Surgical History: Orthopedic Surgery Additional Past Surgical History / Comment(s): arthroscopy right knee, repair of detached retina right eye, carpal tunnel left hand & trigger finger repair, cystoscopy Past Anesthesia/Blood Transfusion Reactions: No Reported Reaction Past Psychological History: No Psychological Hx Reported Smoking Status: Former smoker Past Alcohol Use History: Rare Additional Past Alcohol Use History / Comment(s): quit smoking @age 50, smoked 24 yrs. 2ppd Past Drug Use History: None Reported - Past Family History Mother Family Medical History: No Reported History Medications and Allergies Home Medications Medication Instructions Recorded Confirmed Type metFORMIN HCL [Glucophage] 500 mg PO QAM 08/20/15 11/03/18 History Finasteride [Proscar] 5 mg PO DAILY 07/23/18 11/03/18 History Glucosamine-Chondr 500-400Mg 2 tab PO DAILY 07/23/18 11/03/18 History Tamsulosin [Flomax] 0.4 mg PO BID 07/23/18 11/03/18 History Allergies Allergy/AdvReac Type Severity Reaction Status Date / Time No Known Allergies Allergy Verified 11/03/18 21:48 Physical Examination Right lower extremity: No open lesions or sores present Well healed incision over the anterior knee Mild soft tissue swelling, no obvious effusion No pain with flexion and extension of knee Log roll maneuver causes no pain in right hip region Calf is soft, no tenderness with palpation Skin discoloration noted mid tibia to ankle, chronic vascular changes Plantar flexion, dorsiflexion, extensor hallicus longus, flexor hallicus longus intact Skin is warm to touch Notable edema midtibia and distally Results - Labs Labs: Abnormal Lab Results - Last 24 Hours (Table) 11/03/18 11/03/18 11/04/18 Range/Units 17:33 17:33 07:04 Plt Count 133 L (150-450) k/uL Creatinine 0.53 L (0.66-1.25) mg/dL POC Glucose (mg/dL) 101 H (75-99) mg/dL 11/04/18 11/04/18 Range/Units 08:34 12:19 Plt Count (150-450) k/uL Creatinine 0.59 L (0.66-1.25) mg/dL POC Glucose (mg/dL) 103 H (75-99) mg/dL H & H 11/03/18 Range/Units 17:33 Hgb 13.8 (13.0-17.5) gm/dL Hct 41.3 (39.0-53.0) % Result Diagrams: 11/03/18 17:33 11/04/18 08:34 - Diagnostic results Knee x-ray: report reviewed, image reviewed Assessment and Plan Plan: Imaging: Multiple xrays were done on right lower extremity, no fractures or dislocations. Stable hardware of right knee, no lucensies appreciated. Osteopenic changes appreciated throughout lower right extremity Assessment: 1. Stable right total knee arthroplasty, no evidence of septic joint 2. Right lower extremity edema 3. Other medical cormorbidities Plan: We were able to discuss case with patient at bedside today. No evidence of infection involving right knee, normal post operative findings Recommend resuming normal activity Patient would benefit from bilateral compression stockings, can be set up at outpatient family medicine visit No orthopedic surgical intervention Time with Patient: Less than 30
[2018-11-04 17:20] LABS: Glucose,Whole Blood 126 mg/dL (75-99)
--- NOTE | 2018-11-04 19:01 | HP ---
HISTORY AND PHYSICAL DATE OF SERVICE: 11/04/2018 CHIEF COMPLAINTS: Left ankle and left knee pain. HISTORY OF PRESENT ILLNESS: This 78-year-old gentleman with a past medical history of multiple medical problems, including diabetes mellitus, history of DJD, history of prostate disorder, history of peripheral vascular disease, history of nicotine dependence, being followed by Dr. Man and [facility] in the outpatient setting, was complaining of left ankle and leg pain as well as knee pain. The patient had previous knee arthroplasty. The patient was put on a p.o. course of Keflex. Because of lack of improvement of severe pain, the patient came to [facility] and was admitted for further evaluation and treatment. X-ray showed generalized lower extremity soft tissue swelling and cortical thickening of the mid tibial diaphysis and the possibility of osteomyelitis was also raised at this time. The x-ray showed no other fractures or dislocations. There is no history of any fever, rigor or chills at this time. HOME MEDICATIONS PRIOR TO ADMISSION: Home medications prior to admission include: 1. Metformin 500 mg p.o. each morning. 2. Flomax 0.4 p.o. b.i.d. 3. Glucosamine with chondroitin 2 tablets p.o. daily. 4. Proscar 5 mg p.o. daily. ALLERGIES: NONE. FAMILY HISTORY: No history of heart disease or strokes in the family. SOCIAL HISTORY: Previous history of smoking. No current smoking or alcohol intake. REVIEW OF SYSTEMS: ENT: No diminished hearing. No diminished vision. CARDIOVASCULAR SYSTEM: No angina, palpitations. RESPIRATORY SYSTEM: As mentioned earlier. GI: No nausea, vomiting. : No dysuria or retention. NERVOUS SYSTEM: No numbness, weakness. ALLERGY/IMMUNOLOGY: No asthma, hayfever. MUSCULOSKELETAL: As mentioned earlier. HEMATOLOGY/ONCOLOGY: No history of anemia. ENDOCRINE: Diabetes mellitus. CONSTITUTIONAL: As mentioned earlier. DERMATOLOGY: Negative. RHEUMATOLOGY: Negative. PSYCHIATRY: As mentioned earlier. PHYSICAL EXAMINATION: Patient alert and oriented x3. Pulse 72, blood pressure 102/63, respiration 16, temperature 97.9, pulse ox 95% on room air. HEENT: Conjunctivae normal. Oral mucosa moist. NECK: No jugular venous distention. No carotid bruit. No lymph node enlargement. CARDIOVASCULAR SYSTEM: S1, S2 muffled. RESPIRATORY SYSTEM: Breath sounds diminished at the bases. No rhonchi. No crackles. ABDOMEN: Soft, non-tender. No mass palpable. LEGS: Significant pain and swelling and some discoloration of the left leg present. Some local tenderness also present around the lower leg as well as the left knee and ankle areas. Otherwise, varicose veins bilaterally. NERVOUS SYSTEM: Higher functions as mentioned earlier. Moves all 4 limbs. No focal motor or sensory deficit. LYMPHATICS: No lymph node palpable in neck, axillae or groin. JOINTS: Minimal tenderness of the left ankle and knee joints. SKIN: As mentioned earlier. LABS: WBC 5.5. Platelets are 133. Creatinine is 0.53. ASSESSMENT: 1. Left leg pain with ankle and knee pain. Rule out osteomyelitis. 2. Possible acute cellulitis. 3. Thrombocytopenia. 4. Diabetes mellitus, type 2. 5. Degenerative joint disease. 6. History of prostate disorder. 7. History of carpal tunnel syndrome. 8. History of neuropathy. 9. History of prostate cancer. 10.Remote history of nicotine dependence. RECOMMENDATIONS AND DISCUSSION: In this 78-year-old gentleman who presented with multiple complex medical issues, we will monitor the patient closely, continue the current management, continue with symptomatic treatment. I recommend infectious disease as well as orthopedic evaluations. I would also recommend a three-phase bone scan. Empiric antibiotics covering gram-positive, possibly gram-negative organisms. DVT prophylaxis. Otherwise, resume the home medications. Symptomatic treatment will be provided. Prognosis is guarded because of multiple complex medical issues. Further recommendations to follow. A copy of this dictation is being forwarded to Dr. Man, who is the primary physician. MMDELONL / LEANNN: [id number] /
--- NOTE | 2018-11-04 19:02 | NM ---
EXAMINATION TYPE: NM bone 3 phase DATE OF EXAM: 11/04/2018 COMPARISON: NONE HISTORY: Possible tibia osteomyelitis. Left ankle pain and swelling. Infection. Triple phase bone scintigraphy was performed following the injection of 25.2 mCi Tc 99m MDP. Immedia te images and 3 hours post injection images acquired. FINDINGS: The flow study shows hyperemia around the left ankle. The blood pool images also show persistent hype remia around the ankle. The delayed images show intense increased uptake involving the distal tibia at the ankle joint. There is focal increased uptake on both sides of the left knee. There is left knee prosthesis. There is increased uptake medial aspect right knee consistent with osteoarthritis. There are small foci of increased uptake in the thoracic spine consistent with degenerative disease. There is slight increase d uptake at L4-5 also consistent with degenerative disease. There is mild increased uptake at the lef t shoulder joint consistent with arthritic disease. IMPRESSION: There is hyperemia at the left ankle with delayed increased uptake in the left distal tibia that is s uggestive of osteomyelitis. No fracture seen on the left tibia x-ray performed yesterday. No evidence of osteomyelitis in the mid shaft of the tibia.
[2018-11-04 20:44] LABS: Glucose,Whole Blood 244 mg/dL (75-99)
[2018-11-04] MEDS: TAMSULOSIN 0.4 MG CAP.ER.24H PO SCH (21:15)
--- NOTE | 2018-11-04 22:37 | P.CONS ---
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 Relates to what appears to be a couple week course of symptoms related to his left ankle. He's had some ongoing swelling that has been problematic. It's concerning to him because he does have a history of the left total knee arthroplasty performed earlier this year. It's been doing well with modesty good active motion. However he has had some difficulties as of late with the significant swelling to the leg. It has been problematic and consequently he sought care here at the hospital after being followed [facility]. Despite outpatient antibiotic therapy with Keflex he is still symptomatic. He has been seen by orthopedics, they do not believe there is any significant dysfunction to the left total knee arthroplasty. There is concern for the possibility of osteomyelitis of the left distal tibia. Of note the patient is quite easily agitated. Review of Systems HEENT:Denies headache or acute visual change. Denies sinus or mouth discomforts. Denies neck stiffness or pain. Denies significant oral cavity pain. Denies difficulty on swallowing. Lungs: Denies significant shortness of breath, cough, sputum production, or hemoptysis. Cardiovascular: Denies significant shortness of breath, chest pain, chest wall pain, orthopnea, dyspnea on exertion, syncope Gastrointestinal:Denies nausea, vomiting, diarrhea, constipation, hematemesis, melena, hematochezia. No no significant change of bowel habit noticed. Musculoskeletal: As per the HPI some reduced range of motion to the left knee and some pain and swelling to the distal aspect of the leg Skin: Denies new rash or lesions. No new ulcers or wounds are related.. Neuro: Denies headache or visual change. Denies any new onset weakness or difficulty with ambulation. Denies falls or seizures. Psychiatric:Denies anxiety or depression. Endocrine: Denies significant fatigue, denies significant weight loss or weight gain. Past Medical History Past Medical History: Cancer, Diabetes Mellitus, Osteoarthritis (OA), Prostate Disorder Additional Past Medical History / Comment(s): PVD, carpal tunnel, neuropathy, hx. prostate cancer 2000-tx. w/radiation & chemo, had recent stress test History of Any Multi-Drug Resistant Organisms: None Reported Past Surgical History: Orthopedic Surgery Additional Past Surgical History / Comment(s): arthroscopy right knee, repair of detached retina right eye, carpal tunnel left hand & trigger finger repair, cystoscopy Past Anesthesia/Blood Transfusion Reactions: No Reported Reaction Past Psychological History: No Psychological Hx Reported Additional Psychological History / Comment(s): Patient is . Relates that he has a daughter who is quite involved with. A stepson from his marriage gives him difficulties. As noted he is a reformed smoker. Is not noted to be a significant alcohol user. Retired from the [employer] Smoking Status: Former smoker Past Alcohol Use History: Rare Additional Past Alcohol Use History / Comment(s): quit smoking @age 50, smoked 24 yrs. 2ppd Past Drug Use History: None Reported - Past Family History Mother Family Medical History: No Reported History Medications and Allergies Home Medications and Allergies Comment(s): Current Medications Acetaminophen (Tylenol Tab) 650 mg PO Q6HR PRN PRN Reason: Mild Pain or Fever > 100.5 Hydrocodone Bitart/Acetaminophen (Trout 5-325) 1 each PO Q4HR PRN PRN Reason: Moderate Pain Alprazolam (Xanax) 0.25 mg PO TID PRN PRN Reason: Anxiety Finasteride (Proscar) 5 mg PO DAILY [facility] Heparin Sodium (Porcine) (Heparin) 5,000 unit SQ Q12HR [facility] Last Admin: 11/04/18 21:17 Dose: Not Given Documented by: Vancomycin HCl 1,500 mg/ (Sodium Chloride) 250 mls @ 125 mls/hr IVPB Q12H [facility] Last Admin: 11/04/18 17:07 Dose: 125 mls/hr Documented by: Ceftriaxone Sodium 1 gm/ (Sodium Chloride) 50 mls @ 100 mls/hr IVPB Q24HR [facility] Last Admin: 11/04/18 15:28 Dose: 100 mls/hr Documented by: Ibuprofen (Motrin) 400 mg PO Q6HR PRN PRN Reason: Mild Pain or Fever > 100.5 Insulin Aspart (Novolog) 0 unit SQ ACHS [facility]; Protocol Last Admin: 11/04/18 21:14 Dose: 3 unit Documented by: Metformin HCl (Glucophage) 500 mg PO QAM [facility] Miscellaneous Information (Vancomycin Trough Due) 0 each MISCELLANE DIRECTED ONE Stop: 05/23/19 05:01 Morphine Sulfate (Morphine Sulfate (Inj)) 4 mg IV Q4HR PRN PRN Reason: Severe Pain Naloxone HCl (Narcan) 0.2 mg IV Q2M PRN PRN Reason: Opioid Reversal Ondansetron HCl (Zofran) 4 mg IVP Q8HR PRN PRN Reason: Nausea And Vomiting Pantoprazole Sodium (Protonix) 40 mg PO AC-BRKFST [facility] Tamsulosin HCl (Flomax) 0.4 mg PO BID [facility] Last Admin: 11/04/18 21:15 Dose: 0.4 mg Documented by: Temazepam (Restoril) 15 mg PO HS PRN PRN Reason: Insomnia Home Medications Medication Instructions Recorded Confirmed Type metFORMIN HCL [Glucophage] 500 mg PO QAM 08/20/15 11/03/18 History Finasteride [Proscar] 5 mg PO DAILY 07/23/18 11/03/18 History Glucosamine-Chondr 500-400Mg 2 tab PO DAILY 07/23/18 11/03/18 History Tamsulosin [Flomax] 0.4 mg PO BID 07/23/18 11/03/18 History Allergies Allergy/AdvReac Type Severity Reaction Status Date / Time No Known Allergies Allergy Verified 11/03/18 21:48 Physical Exam Vitals: Vital Signs Temp Pulse Pulse Resp BP BP Pulse Ox 11/04/18 15:07 97.9 F 72 16 102/63 95 11/04/18 05:11 97.8 F 75 18 121/71 97 11/04/18 04:00 75 18 11/03/18 23:50 98.0 F 76 18 133/70 95 Intake and Output 11/04/18 11/04/18 11/04/18 06:59 14:59 22:59 Intake Total 160 Balance 160 Intake: IV 160 Sodium Chloride 0.9% 1, 160 000 ml @ 75 mls/hr IV . [id number] Rx#:[id number] Other: Voiding Method Toilet # Voids 1 # Bowel Movements 0 78-year-old male, standard build HEENT: Anicteric conjunctiva are pink and moist nasal mucosa grossly intact without significant lesions, there is no thrush. Neck: The neck is supple without significant lymphadenopathy or thyromegaly. Lungs: Good bilateral air entry without significant crackles or wheezing. There is no significant bronchial sounds. There is no egophony or dullness. Heart: Regular rate and rhythm with an audible S1-S2, no S3 no S4. There is no significant murmur click or rub, PMI was nondisplaced. Abdomen: Positive bowel sounds soft and nontender without palpable masses or organomegaly. There was no guarding or rebound. Extremities: The upper extremities have excellent pulses they are symmetric, no significant petechiae or telangiectasia. No splinter hemorrhages were noted. Right lower extremities without acute abnormality. Left lower extremities res istant to the recent left total knee arthroplasty. There is scant warmth to the knee and some residual edema but has modestly good range of motion. No pain with range of motion. Left distal leg has evidence swelling and it is somewhat uncomfortable. He relates all since coming to hospital and having to decrease swelling his range of motion is improved and he is pleased with this. Neuro: Awake alert oriented to person place and time. There are no acute new gross focal sensory motor deficits. Easily agitated Results CBC & Chem 7: 11/03/18 17:33 11/04/18 08:34 Labs: Abnormal Lab Results - Last 24 Hours (Table) 11/04/18 11/04/18 11/04/18 Range/Units 07:04 08:34 08:34 ESR 17 H (0-15) mm/hr Creatinine 0.59 L (0.66-1.25) mg/dL POC Glucose (mg/dL) 101 H (75-99) mg/dL 11/04/18 11/04/18 11/04/18 Range/Units 12:19 17:15 20:37 ESR (0-15) mm/hr Creatinine (0.66-1.25) mg/dL POC Glucose (mg/dL) 103 H 126 H 244 H (75-99) mg/dL Microbiology - Last 24 Hours (Table) 11/03/18 17:33 Blood Culture - Preliminary Blood No Growth after 24 hours Laboratory Results WBC 5.5 k/uL (3.8-10.6) 11/03/18 17:33 RBC 4.64 m/uL (4.30-5.90) 11/03/18 17:33 Hgb 13.8 gm/dL (13.0-17.5) 11/03/18 17:33 Hct 41.3 % (39.0-53.0) 11/03/18 17:33 MCV 89.0 fL (80.0-100.0) 11/03/18 17:33 MCH 29.8 pg (25.0-35.0) 11/03/18 17:33 MCHC 33.5 g/dL (31.0-37.0) 11/03/18 17:33 RDW 14.7 % (11.5-15.5) 11/03/18 17:33 Plt Count 133 k/uL (150-450) L 11/03/18 17:33 Neutrophils % 69 % 11/03/18 17:33 Lymphocytes % 18 % 11/03/18 17:33 Monocytes % 8 % 11/03/18 17:33 Eosinophils % 2 % 11/03/18 17:33 Basophils % 1 % 11/03/18 17:33 Neutrophils # 3.8 k/uL (1.3-7.7) 11/03/18 17:33 Lymphocytes # 1.0 k/uL (1.0-4.8) 11/03/18 17:33 Monocytes # 0.4 k/uL (0-1.0) 11/03/18 17:33 Eosinophils # 0.1 k/uL (0-0.7) 11/03/18 17:33 Basophils # 0.0 k/uL (0-0.2) 11/03/18 17:33 ESR 17 mm/hr (0-15) H 11/04/18 08:34 Sodium 141 mmol/L (137-145) 11/03/18 17:33 Potassium 4.3 mmol/L (3.5-5.1) 11/03/18 17:33 Chloride 105 mmol/L (98-107) 11/03/18 17:33 Carbon Dioxide 26 mmol/L (22-30) 11/03/18 17:33 Anion Gap 10 mmol/L 11/03/18 17:33 BUN 13 mg/dL (9-20) 11/03/18 17:33 Creatinine 0.59 mg/dL (0.66-1.25) L 11/04/18 08:34 Est GFR (CKD-EPI)AfAm >90 (>60 ml/min/1.73 sqM) 11/04/18 08:34 Est GFR (CKD-EPI)NonAf >90 (>60 ml/min/1.73 sqM) 11/04/18 08:34 Glucose 94 mg/dL (74-99) 11/03/18 17:33 POC Glucose (mg/dL) 244 mg/dL (75-99) H 11/04/18 20:37 POC 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 [employer] Amarilis Hinson 11/04/18 20:37 Plasma Lactic Acid Ivan 1.1 mmol/L (0.7-2.0) 11/03/18 17:33 Calcium 10.0 mg/dL (8.4-10.2) 11/03/18 17:33 Total Bilirubin 1.2 mg/dL (0.2-1.3) 11/03/18 17:33 AST 40 U/L (17-59) 11/03/18 17:33 ALT 21 U/L (21-72) 11/03/18 17:33 Alkaline Phosphatase 109 U/L (38-126) 11/03/18 17:33 C-Reactive Protein 7.2 mg/L (<10.0) 11/04/18 08:34 Total Protein 8.1 g/dL (6.3-8.2) 11/03/18 17:33 Albumin 4.5 g/dL (3.5-5.0) 11/03/18 17:33 Urine Color Light Yellow 11/03/18 17:50 Urine Appearance Clear (Clear) 11/03/18 17:50 Urine pH 5.0 (5.0-8.0) 11/03/18 17:50 Ur Specific [place] 1.011 (1.001-1.035) 11/03/18 17:50 Urine Protein Negative (Negative) 11/03/18 17:50 Urine Glucose (UA) Negative (Negative) 11/03/18 17:50 Urine Ketones Negative (Negative) 11/03/18 17:50 Urine Blood Negative (Negative) 11/03/18 17:50 Urine Nitrite Negative (Negative) 11/03/18 17:50 Urine Bilirubin Negative (Negative) 11/03/18 17:50 Urine Urobilinogen <2.0 mg/dL (<2.0) 11/03/18 17:50 Ur Leukocyte Esterase Negative (Negative) 11/03/18 17:50 C. difficile (EIA) Intrp Negative (Negative) 11/04/18 11:14 Microbiology 11/03/18 17:33 Blood Blood Culture - Preliminary No Growth after 24 hours Comments: The tib-fib x-ray reveals evidence of the edema some cortical thickening of the mid tibial diaphysis. Left ankle x-ray shows evidence of well-corticated fragment distal to the fibula suggestive of the [place] of prior trauma no acute fracture dislocation seen Bone scan shows evidence of hyperemia the left ankle at the left distill tibia. Assessment and Plan (1) Leg swelling Narrative/Plan: 78-year-old male presents to Hospital with a several week history of pain and swelling to the left ankle area. Despite outpatient treatment it was not improving and constantly sought care at our facility. He then [facility] With lack of improvement he sought further evaluation with his orthopedic surgeon who did the left knee arthroplasty earlier. Orthopedics is happily there is any difficulty with the knee. The x-rays and bone scan have been reviewed. The patient likely has had a traumatic injury to the left ankle area is noted by the ankle x-ray in is likely the etiology of the uptake of the bone scan. The patient will be treated with some local care Silvadene wrap will be applied to see if we can further improve the edema. With elevation and some antibiotic therapy in hospital user he had a marked improvement. The cellulitis of the areas possible with lack of response to Keflex but showing response to vancomycin and Rocephin. Expect the patient will rapidly improve and completed a course of oral antibiotic therapy with ongoing follow-up with orthopedics. Current Visit: Yes Status: Acute Code(s): M79.89 - OTHER SPECIFIED SOFT TISSUE DISORDERS SNOMED Code(s): 935066169 (2) Status post total left knee replacement Current Visit: No Status: Acute Code(s): Z96.652 - PRESENCE OF LEFT ARTIFICIAL KNEE JOINT SNOMED Code(s): 7047246105996
[2018-11-05] MEDS ORDERED: VANCOMYCIN TROUGH DUE 1 EACH MISC MISCELLANE ONE (05:00)
[2018-11-05] MEDS: VANCOMYCIN 1,500 MG in SODIUM CHLORIDE 0.9% 250 ML IVPB SCH (06:03)
[2018-11-05 07:01] LABS: Glucose,Whole Blood 156 mg/dL (75-99)
[2018-11-05] MEDS: HEPARIN SODIUM,PORCINE 5,000 UNIT/ML 1 ML VIAL SQ SCH ×2 (08:20→20:20)
[2018-11-05] MEDS: PANTOPRAZOLE 40 MG TABLET PO SCH (08:21)
[2018-11-05] MEDS: INSULIN ASPART (NovoLOG) 100 UNIT/ML VIAL SQ SCH ×4 (08:21→20:22)
[2018-11-05] MEDS: FINASTERIDE 5 MG TAB PO SCH (08:21)
[2018-11-05] MEDS: TAMSULOSIN 0.4 MG CAP.ER.24H PO SCH ×2 (08:21→20:20)
[2018-11-05] MEDS: metFORMIN 500 MG TAB PO SCH (08:21)
[2018-11-05] MEDS ORDERED: GLUCOSAMINE CHONDR PO SCH (09:00)
[2018-11-05 11:35] LABS: Glucose,Whole Blood 107 mg/dL (75-99)
[2018-11-05] MEDS: VANCOMYCIN 1,750 MG in SODIUM CHLORIDE 0.9% 500 ML 500 ML IVPB SCH (16:31)
[2018-11-05 17:14] LABS: Glucose,Whole Blood 103 mg/dL (75-99)
--- NOTE | 2018-11-05 18:08 | PN ---
PROGRESS NOTE DATE OF SERVICE: 11/05/2018 This 78-year-old gentleman was admitted with acute cellulitis. The patient had a bone scan yesterday which shows some hyperemia of the left ankle and delayed increased uptake on the left distal tibia that is suggestive of osteomyelitis. Dr. Oconnell from Infectious Disease has seen the patient and is following him closely. The uptake in the bone scan is thought to be due to the injury. Otherwise, the patient is responding to antibiotics at this time. Past medical history reviewed. PHYSICAL EXAMINATION: Patient is alert, oriented x3. Pulse is 79, blood pressure 170/75, respiration 18, temperature 96.7, pulse ox 95% on room. HEENT: Conjunctivae normal. NECK: No jugular venous distention. CARDIOVASCULAR SYSTEM: S1, S2 muffled. RESPIRATORY SYSTEM: Breath sounds diminished at the bases. No rhonchi. No crackles. ABDOMEN: Soft, non-tender. LEGS: Left leg swelling and edema slightly better. LAB INVESTIGATIONS: C difficile is negative. Vancomycin 13.5. Glucose 107. Creatinine is normal. ESR is 17. ASSESSMENT: 1. Acute left leg pain, ankle and knee pain, possible cellulitis. Osteomyelitis not likely per Infectious Disease. 2. Thrombocytopenia. 3. Diabetes mellitus, type 2. 4. Degenerative joint disease. 5. History of prostate disorder. 6. History of carpal tunnel syndrome. 7. History of neuropathy. 8. History of prostate cancer. 9. Remote history of nicotine dependence. RECOMMENDATIONS AND DISCUSSION: I recommend to continue current medications, continue with the monitoring, symptomatic treatment. Otherwise at this time we will monitor the patient closely. I would recommend continuing with antibiotics. Closely follow with Infectious Disease and Orthopedic Surgery. Guarded prognosis. Further recommendations to follow. MMODL / IJN: [id number] /
[2018-11-05 20:25] LABS: Glucose,Whole Blood 113 mg/dL (75-99)
[2018-11-05 22:50] VITALS: RESP 18
[2018-11-06] MEDS: VANCOMYCIN 1,750 MG in SODIUM CHLORIDE 0.9% 500 ML 500 ML IVPB SCH (06:02)
[2018-11-06 06:15] VITALS: BP 110/62; PULSE 73; TEMP 97.7
[2018-11-06 07:17] LABS: Glucose,Whole Blood 97 mg/dL (75-99)
[2018-11-06] MEDS: HEPARIN SODIUM,PORCINE 5,000 UNIT/ML 1 ML VIAL SQ SCH (07:19)
[2018-11-06] MEDS: metFORMIN 500 MG TAB PO SCH (07:20)
[2018-11-06] MEDS: PANTOPRAZOLE 40 MG TABLET PO SCH (07:20)
[2018-11-06] MEDS: FINASTERIDE 5 MG TAB PO SCH (07:20)
[2018-11-06] MEDS: TAMSULOSIN 0.4 MG CAP.ER.24H PO SCH (07:20)
[2018-11-06] MEDS: INSULIN ASPART (NovoLOG) 100 UNIT/ML VIAL SQ SCH ×2 (07:24→12:00)
[2018-11-06 08:35] LABS: Basophils % (A) 1 %; Eosinophils # (A) 0.1 k/uL (0-0.7); Eosinophils % (A) 2 %; HCT 38.8 % (39.0-53.0); HGB 12.7 gm/dL (13.0-17.5); Lymphocytes # (A) 1.1 k/uL (1.0-4.8); Lymphocytes % (A) 22 %; MCH 29.3 pg (25.0-35.0); MCHC 32.8 g/dL (31.0-37.0); MCV 89.3 fL (80.0-100.0); Monocytes # (A) 0.4 k/uL (0-1.0); Monocytes % (A) 8 %; Neutrophils # (A) 3.2 k/uL (1.3-7.7); Neutrophils % (A) 66 %; Platelet Count 131 k/uL (150-450); RBC 4.35 m/uL (4.30-5.90); RDW 14.5 % (11.5-15.5); WBC 4.8 k/uL (3.8-10.6)
[2018-11-06 08:59] LABS: Anion Gap 6 mmol/L; Blood Urea Nitrogen 15 mg/dL (9-20); Calcium 9.8 mg/dL (8.4-10.2); Carbon Dioxide 28 mmol/L (22-30); Chloride 106 mmol/L (98-107); Glucose 95 mg/dL (74-99); Potassium 4.4 mmol/L (3.5-5.1); Sodium 140 mmol/L (137-145)
[2018-11-06 12:08] LABS: Glucose,Whole Blood 109 mg/dL (75-99)
--- NOTE | 2018-11-06 16:36 | P.DS ---
Providers Date of admission: 11/03/18 17:43 Expected date of discharge: 11/06/18 Attending physician: Aashish Luevano Consults: 11/04/18 11:02 Consult Physician Routine Consulting Provider: Fred Oconnell Consult Reason/Comments: poss osteo LLE Do you want consulting provider notified?: Yes 11/04/18 11:03 Consult Physician Routine Consulting Provider: Mario Amaya Consult Reason/Comments: poss osteo LLE, recent left TKR Do you want consulting provider notified?: Yes Primary care physician: [facility] [place] Hospital Course: discharge diagnosis - Left ankle and left leg pain secondary to cellulitis - History of diabetes mellitus - History of DJD - History of thrombocytopenia - History of prostate cancer - History of carpal tunnel syndrome Hospital course - 78-year-old gentleman with a past medical history stated above is admitted for cellulitis of his ankle and pain in his left knee. Orthopedic doctor and infectious disease were consulted. His bone scan was done which showed increased uptake but according to infectious disease probably because of trauma and he was ruled out of osteomyelitis. He was continued on vancomycin and Rocephin. His pain and swelling were much better On 11/06/2018 On exam, alert and oriented x3. HEENT: Conjunctivae normal. eyes normal. NECK: No JVD. No thyroid enlargement. No LNs CARDIOVASCULAR: S1, S2 muffled. No murmur RESPIRATION: Breath sounds diminished in the bases. No rhonchi or crackles. No bronchial breathing. ABDOMEN: Soft, nontender . No guarding. no masses palpable. No ascites, No he patosplenomegaly.Bowel sounds heard. LEGS: left knee is more swollen than the right there is no evidence of infection. Left ankle was also swollen more than the right. redness in the left ankle improving as per patient NERVOUS SYSTEM: Cranial N 2-12 grossly normal. Moves all 4 limbs. No focal deficits. No sensory deficit. No signs of cerebellar dysfucntion. Skin: no ulcer no rash the patient was thus put on oral doxycycline by infectious disease.He will be discharged if cleared by infectious disease and orthopedic surgery Plan - Discharge Summary New Discharge Prescriptions: New Doxycycline Monohydrate [Monodox] 100 mg PO Q12HR #20 cap HYDROcodone/APAP 5-325MG [[place]hoe 5-325] 1 each PO Q4HR PRN #30 tab PRN Reason: Moderate Pain SILVER sulfADIAZINE CREAM [Silvadene Cream] 1 applic TOPICAL DAILY #1 tube Continue metFORMIN HCL [Glucophage] 500 mg PO QAM Finasteride [Proscar] 5 mg PO DAILY Glucosamine-Chondr 500-400Mg 2 tab PO DAILY Tamsulosin [Flomax] 0.4 mg PO BID Discharge Medication List metFORMIN HCL [Glucophage] 500 mg PO QAM 08/20/15 [History] Finasteride [Proscar] 5 mg PO DAILY 07/23/18 [History] Glucosamine-Chondr 500-400Mg 2 tab PO DAILY 07/23/18 [History] Tamsulosin [Flomax] 0.4 mg PO BID 07/23/18 [History] Doxycycline Monohydrate [Monodox] 100 mg PO Q12HR #20 cap 11/06/18 [Rx] HYDROcodone/APAP 5-325MG [Ivanhoe 5-325] 1 each PO Q4HR PRN #30 tab 11/06/18 [Rx] SILVER sulfADIAZINE CREAM [Silvadene Cream] 1 applic TOPICAL DAILY #1 tube 10/15 10/02 [Rx] Follow up Appointment(s)/Referral(s): Mario Amaya DO [Doctor of Osteopathic Medicine] - 1 Week [facility],Clinic [Primary Care Provider] - 1-2 days Patient Instructions/Handouts: Leg Edema (ED) Discharge Disposition: HOME WITH HOME HEALTH SERVICES
[2018-11-06] MEDS ORDERED: VANCOMYCIN 1,500 MG in SODIUM CHLORIDE 0.9% 250 ML IVPB SCH (18:00)
[2018-11-07] MEDS ORDERED: VANCOMYCIN TROUGH DUE 1 EACH MISC MISCELLANE ONE (17:00)
== END 2018-11-06 17:30 | disposition home or self-care (01) | DRG 603 ==
LOC: EC 13:08 → 4MS4W 17:43
PROVIDERS: ADMIT Hospitalist; ATTEND Hospitalist
DX: L03.116 Cellulitis of left lower limb (principal); D69.6 Thrombocytopenia, unspecified; E11.40 Type 2 diabetes mellitus with diabetic neuropathy, unspecified; E11.51 Type 2 diabetes mellitus with diabetic peripheral angiopathy without gangrene; M19.90 Unspecified osteoarthritis, unspecified site; Z79.82 Long term (current) use of aspirin; Z79.84 Long term (current) use of oral hypoglycemic drugs; Z79.899 Other long term (current) drug therapy; Z85.46 Personal history of malignant neoplasm of prostate; Z87.891 Personal history of nicotine dependence; Z96.653 Presence of artificial knee joint, bilateral; Z92.3 Personal history of irradiation; Z92.21 Personal history of antineoplastic chemotherapy
CPT/HCPCS: 36415; 78315; 80048; 80053; 80202; 81003; 82565; 83605; 85025; 85652; 86140; 87040; 87324; 96361; 96365; 96366; 96375; 99285

== ENCOUNTER 2018-11-20 16:21 | Emergency (ER) | payer MEDICARE, OTHER ==
[2018-11-20 17:01] VITALS: PULSE 82; RESP 18
--- NOTE | 2018-11-20 18:09 | ED ---
General Adult HPI - General Chief complaint: Recheck/Abnormal Lab/Rx Stated complaint: Med refill Time Seen by Provider: 11/20/18 17:39 Source: patient Mode of arrival: ambulatory Limitations: no limitations - History of Present Illness Initial comments: This is a 78-year-old male who presents to the emergency department for left lower chrie swelling and tightness. The patient states that he was recently discharged from the hospital for an infection in the left lower extremity. He was on doxycycline which he states he completed 3 days ago. He states that since then he's noticed that the swelling seems to be worsening. He states that it seems to be made worse when he is up on it and better when he is laying down and keeps it up. He denies any increased amount of redness to it. No fevers or chills. He states he was treated for an infection and feels he needs more antibiotics. On review of his chart he was evaluated here by infectious disease who did not feel that the patient had osteomyelitis. He was discharged with left lower extremity cellulitis at that time. Dr. Oconnell is the one that saw the patient. - Related Data Home Medications Medication Instructions Recorded Confirmed metFORMIN HCL [Glucophage] 500 mg PO QAM 08/20/15 11/20/18 Finasteride [Proscar] 5 mg PO DAILY 07/23/18 11/20/18 Glucosamine-Chondr 500-400Mg 2 tab PO DAILY 07/23/18 11/20/18 Tamsulosin [Flomax] 0.4 mg PO BID 07/23/18 11/20/18 Previous Rx's Medication Instructions Recorded SILVER sulfADIAZINE CREAM 1 applic TOPICAL DAILY #1 tube 11/06/18 [Silvadene Cream] Sulfamethox-Tmp 800-160Mg [Bactrim 1 tab PO Q12HR #14 tab 11/20/18 DS 800-160 mg] Allergies Allergy/AdvReac Type Severity Reaction Status Date / Time No Known Allergies Allergy Verified 11/20/18 18:23 Review of Systems ROS Statement: Those systems with pertinent positive or pertinent negative responses have been documented in the HPI. ROS Other: All systems not noted in ROS Statement are negative. Past Medical History Past Medical History: Cancer, Diabetes Mellitus, Osteoarthritis (OA), Prostate Disorder Additional Past Medical History / Comment(s): PVD, carpal tunnel, neuropathy, hx. prostate cancer 2000-tx. w/radiation & chemo, had recent stress test History of Any Multi-Drug Resistant Organisms: None Reported Past Surgical History: Orthopedic Surgery Additional Past Surgical History / Comment(s): arthroscopy right knee, repair of detached retina right eye, carpal tunnel left hand & trigger finger repair, cystoscopy Past Anesthesia/Blood Transfusion Reactions: No Reported Reaction Past Psychological History: No Psychological Hx Reported Smoking Status: Former smoker Past Alcohol Use History: Rare Past Drug Use History: None Reported - Past Family History Mother Family Medical History: No Reported History General Exam - General Exam Comments Initial Comments: Constitutional: Awake alert Appears comfortable Head: Normocephalic atraumatic Eyes: no conjunctival injection No scleral icterus EOMI Neck: No JVD Supple Heart: Regular rate rhythm normal S1-S2 no murmurs Lungs: Clear to auscultation bilaterally No wheezing No rales Abdomen: Soft nondistended nontender Extremities: Edema to the left lower extremity with some tenderness to palpation along the calf. There does not appear to be any erythema. There are chronic skin changes likely from venous stasis. DP pulses intact Radial pulses intact Neuro: A&Ox3 No focal neurologic deficits Psych: Appropriate mood and affect Limitations: no limitations Course Vital Signs 11/20/18 11/20/18 16:57 19:15 Temperature 97.5 F L Pulse Rate 82 Respiratory 18 Rate Blood Pressure 154/79 137/70 O2 Sat by Pulse 96 97 Oximetry Medical Decision Making - Medical Decision Making Is a 78-year-old male who presents emergency department for left lower extremity swelling and redness. The patient clinically appears to have some chronic venous stasis changes to his legs. He does have a little bit of mild erythema on reexamination of the limb after blood work was obtained. Dopplers were negat letty. Blood work appeared unremarkable. I'm going to try the patient on Bactrim for a week. He does not have any chronic kidney disease and does not take any blood thinners. Told to return emergency Department if he has worsening redness or swelling. All questions were answered. - Lab Data Result diagrams: 11/20/18 18:06 11/20/18 18:06 Lab Results 11/20/18 11/20/18 Range/Units 18:06 18:06 WBC 6.2 (3.8-10.6) k/uL RBC 4.61 (4.30-5.90) m/uL Hgb 13.4 (13.0-17.5) gm/dL Hct 41.2 (39.0-53.0) % MCV 89.3 (80.0-100.0) fL MCH 29.1 (25.0-35.0) pg MCHC 32.6 (31.0-37.0) g/dL RDW 14.4 (11.5-15.5) % Plt Count 133 L (150-450) k/uL Neutrophils % 69 % Lymphocytes % 18 % Monocytes % 8 % Eosinophils % 1 % Basophils % 1 % Neutrophils # 4.3 (1.3-7.7) k/uL Lymphocytes # 1.1 (1.0-4.8) k/uL Monocytes # 0.5 (0-1.0) k/uL Eosinophils # 0.1 (0-0.7) k/uL Basophils # 0.0 (0-0.2) k/uL Sodium 142 (137-145) mmol/L Potassium 5.0 (3.5-5.1) mmol/L Chloride 107 (98-107) mmol/L Carbon Dioxide 26 (22-30) mmol/L Anion Gap 9 mmol/L BUN 18 (9-20) mg/dL Creatinine 0.63 L (0.66-1.25) mg/dL Est GFR (CKD-EPI)AfAm >90 (>60 ml/min/1.73 sqM) Est GFR (CKD-EPI)NonAf >90 (>60 ml/min/1.73 sqM) Glucose 123 H (74-99) mg/dL Calcium 9.6 (8.4-10.2) mg/dL Total Bilirubin 1.1 (0.2-1.3) mg/dL AST 42 (17-59) U/L ALT 12 L (21-72) U/L Alkaline Phosphatase 110 (38-126) U/L Total Protein 7.9 (6.3-8.2) g/dL Albumin 4.3 (3.5-5.0) g/dL Disposition Clinical Impression: Cellulitis Disposition: HOME SELF-CARE Condition: Stable Prescriptions: Sulfamethox-Tmp 800-160Mg [Bactrim DS 800-160 mg] 1 tab PO Q12HR #14 tab Is patient prescribed a controlled substance at d/c from ED?: No Referrals: [facility],Clinic [Primary Care Provider] - 1-2 days
[2018-11-20 18:58] LABS: Basophils % (A) 1 %; Eosinophils # (A) 0.1 k/uL (0-0.7); Eosinophils % (A) 1 %; HCT 41.2 % (39.0-53.0); HGB 13.4 gm/dL (13.0-17.5); Lymphocytes # (A) 1.1 k/uL (1.0-4.8); Lymphocytes % (A) 18 %; MCH 29.1 pg (25.0-35.0); MCHC 32.6 g/dL (31.0-37.0); MCV 89.3 fL (80.0-100.0); Mean Platelet Volume 7.9; Monocytes # (A) 0.5 k/uL (0-1.0); Monocytes % (A) 8 %; Neutrophils # (A) 4.3 k/uL (1.3-7.7); Neutrophils % (A) 69 %; Platelet Count 133 k/uL (150-450); RBC 4.61 m/uL (4.30-5.90); RDW 14.4 % (11.5-15.5); WBC 6.2 k/uL (3.8-10.6)
[2018-11-20 19:04] LABS: ALT 12 U/L (21-72); AST 42 U/L (17-59); Albumin 4.3 g/dL (3.5-5.0); Alkaline Phosphatase 110 U/L (38-126); Anion Gap 9 mmol/L; Blood Urea Nitrogen 18 mg/dL (9-20); Calcium 9.6 mg/dL (8.4-10.2); Carbon Dioxide 26 mmol/L (22-30); Chloride 107 mmol/L (98-107); Glucose 123 mg/dL (74-99); Sodium 142 mmol/L (137-145); Total Bilirubin 1.1 mg/dL (0.2-1.3); Total Protein 7.9 g/dL (6.3-8.2)
[2018-11-20 19:18] VITALS: BP 137/70
--- NOTE | 2018-11-20 20:37 | US ---
EXAMINATION TYPE: US venous doppler duplex LE LT DATE OF EXAM: 11/20/2018 8:07 PM COMPARISON: NONE CLINICAL HISTORY: Swelling. SIDE PERFORMED: Left TECHNIQUE: The lower extremity deep venous system is examined utilizing real time linear array sonog elieser with graded compression, doppler sonography and color-flow sonography. VESSELS IMAGED: External Iliac Vein (EIV) Common Femoral Vein Deep Femoral Vein Greater Saphenous Vein * Femoral Vein Popliteal Vein Small Saphenous Vein * Proximal Calf Veins (* superficial vessels) Left Leg: Negative for DVT IMPRESSION: . No evidence of deep venous thrombosis in the left leg.
[2018-11-20 21:04] VITALS: TEMP 98.6
== END 2018-11-20 21:00 | disposition home or self-care (01) ==
LOC: EC 16:21
DX: L03.116 Cellulitis of left lower limb (principal); Z76.0 Encounter for issue of repeat prescription; E11.40 Type 2 diabetes mellitus with diabetic neuropathy, unspecified; M19.90 Unspecified osteoarthritis, unspecified site; Z85.46 Personal history of malignant neoplasm of prostate; Z92.21 Personal history of antineoplastic chemotherapy; Z87.891 Personal history of nicotine dependence; Z79.84 Long term (current) use of oral hypoglycemic drugs; Z79.899 Other long term (current) drug therapy
CPT/HCPCS: 36415; 80053; 85025; 99284

== ENCOUNTER → 2019-08-30 | Outpatient (CLI) | payer MEDICARE, OTHER | END | disposition home or self-care (01) | CPT/HCPCS: 36415; 82040; 82947; 83001; 83002; 84146; 84153; 84154; 84270; 84402; 84403; 84436; 84479 ==

== ENCOUNTER → 2019-09-01 | Outpatient (CLI) | payer MEDICARE, OTHER ==
[2019-09-02 00:38] LABS: C Reactive Protein <0.4 mg/dL (0.0-0.8)
[2019-09-02 06:49] LABS: Gliadin AB IgA, Deaminated NEGATIVE (NEGATIVE); Gliadin AB IgA, Unit <0.2 U/mL; Gliadin AB IgG, Deaminated NEGATIVE (NEGATIVE)
== END | disposition home or self-care (01) ==
LOC: LABWHC1 17:00
PROVIDERS: ATTEND Internal Medicine
DX: R19.7 Diarrhea, unspecified (principal)
CPT/HCPCS: 36415; 83516; 83630; 83993; 84439; 84443; 85652; 86140; 87045; 87046; 87328; 87329

== ENCOUNTER → 2019-10-19 | Outpatient (CLI) | payer MEDICARE, OTHER ==
[2019-10-19 18:48] LABS: African American GFR (CKD) 103.3 (60.0-200.0); Anion Gap 10.5 mmol/L (4.00-12.00); BUN/Creat Ratio 31.43 Ratio (12.00-20.00); Calcium 9.4 mg/dL (8.7-10.3); Carbon Dioxide 24.5 mmol/L (21.6-31.8); Non-African American GFR(CKD) 89.1 (60.0-200.0); Potassium 4.1 mmol/L (3.5-5.5)
== END | disposition home or self-care (01) ==
LOC: LABWHC1 11:30
PROVIDERS: ATTEND Urology
DX: C61 Malignant neoplasm of prostate (principal)
CPT/HCPCS: 36415; 80048; 84153

== ENCOUNTER → 2020-06-27 | Outpatient (CLI) | payer MEDICARE, OTHER | END | disposition home or self-care (01) | LOC: LABPAT 11:02 | PROVIDERS: ATTEND Orthopaedic Surgery | DX: Z01.812 Encounter for preprocedural laboratory examination (principal) | CPT/HCPCS: 87070 ==

== ENCOUNTER 2020-07-24 08:32 | Day surgery (SDC) | payer MEDICARE, OTHER ==
[2020-07-20 12:54] VITALS: BMI 28.1
--- NOTE | 2020-07-23 17:22 | HP ---
HISTORY AND PHYSICAL DATE OF SERVICE: Surgery scheduled 07/24/2020 HISTORY OF PRESENT ILLNESS: Saeid Suresh is an 80-year-old gentleman seen with symptomatic right knee osteoarthritis. We discussed options for treatment. He elected to proceed with right total knee arthroplasty. Consent regarding the procedure was obtained. Medical clearance was provided by Dr. Thomas Martinez. PAST MEDICAL HISTORY: Hypertension, hqb-syvocqi-bzagymufx diabetes. PAST SURGICAL HISTORY: Knee arthroscopy, carpal tunnel release, eye surgery. MEDICATIONS: Finasteride. Metformin. ALLERGIES: None. SOCIAL HISTORY: Denies tobacco use. PHYSICAL EVALUATION OF THE RIGHT KNEE: Range of motion: Negative 2-3 to 115. Mild effusion. Tenderness medial joint line. Crepitus medial patellofemoral compartments with range of motion. Ligaments stable. Hip rotation without pain. Distal neurovascular exam is intact. RADIOGRAPHS: Right knee radiographs reveal severe osteoarthritic changes. IMPRESSION: 1. Right knee osteoarthritis. 2. Hypertension. 3. Kdy-unbbsdd-aqdkytrae diabetes. PLAN: Right total knee arthroplasty. Surgery scheduled for 07/24/2020. MMODL / IJN: [id number] /
[~2020-07-24 08:32] MED LIST changes: -ACETAMINOPHEN TAB 500 MG TAB PO ONE; +ACETAMINOPHEN TAB 500 MG TAB PO PRN; +HYDROmorphone 0.5 MG/0.5 ML SYRINGE IVP PRN; -MELOXICAM 7.5 MG TAB PO ONE; +MELOXICAM 7.5 MG TAB PO PRN; +ONDANSETRON 4 MG/2 ML VIAL IVP ONE; +ROPIVACAINE/EPI/CLONIDINE/KET 50 ML SYRINGE MISCELLANE PRN; -TRANEXAMIC ACID 1,000 MG in SODIUM CHLORIDE 0.9% 50 ML IVPB ONE; -ceFAZolin IN SWFI 2 GM/20 ML SYRINGE IVP ONE
[2020-07-24 09:20] LABS: Glucose,Whole Blood 98 mg/dL (75-99)
[2020-07-24] MEDS ORDERED: MIDAZOLAM 2 MG/2 ML VIAL IV ONE (09:41)
[2020-07-24] MEDS ORDERED: PHENYLEPHRINE-0.9% NACL SYG 1,000 MCG/10 ML SYRINGE ONE (09:54)
[2020-07-24] MEDS ORDERED: PROPOFOL 10 MG/ML 20 ML VIAL IV ONE (09:54)
[2020-07-24] MEDS ORDERED: TRANEXAMIC ACID 1,000 MG/10 ML VIAL ONE (09:54)
[2020-07-24] MEDS ORDERED: LIDOCAINE 1% INJ 10MG/ML (20 ML MDV) ONE (09:54)
[2020-07-24] MEDS ORDERED: fentaNYL (PF) 50 MCG/ML 2 ML AMP ONE (09:54)
[2020-07-24] MEDS ORDERED: SODIUM CHLORIDE 0.9% 100 ML BAG ONE (09:54)
[2020-07-24] MEDS: LACTATED RINGERS 1,000 ML IV SCH ×2 (09:55→20:15)
[2020-07-24] MEDS ORDERED: ceFAZolin 1,000 MG in SODIUM CHLORIDE 0.9% 1,000 ML IRRIGATION ONE (10:32)
[2020-07-24] MEDS ORDERED: LACTATED RINGERS 1,000 ML IV ONE (11:20)
[2020-07-24] MEDS ORDERED: ROPIVACAINE 0.2%-NS ON-Q PUMP 1,090 MG, EMPTY PAIN BALL 1 EACH MISCELLANE PRN (11:25)
--- NOTE | 2020-07-24 11:30 | P.ANPRN ---
Procedure Note - Anesthesia - Nerve Block Performed Right Adductor Canal Infusion Time Out Performed: Yes Date of Procedure: 07/24/20 Procedure Start Time: 09:40 Procedure Stop Time: 09:50 Location of Patient: PreOp Indication: Acute Post-Operative Pain, Requested by Surgeon Sedation Type: Sedate with meaningful contact maintained Preparation: Sterile Prep, Sterile Dressing Catheter: Indwelling Needle Types: Pajunk Needle Gauge: 21 Ultrasound used to visualize needle placement: Yes Ultrasound used to observe medication spread: Yes Blood Aspirated: No Pain Paresthesia on Injection Noted: No Resistance on Injection: Normal Image Stored and Saved: Yes Events: Uneventful and Well Tolerated (ropi .5% 20cc plus dexamethasone 4mg)
[2020-07-24] MEDS ORDERED: HYDROmorphone 0.2 MG/1 ML SYRINGE IVP PRN (11:56)
[2020-07-24] MEDS ORDERED: ONDANSETRON 4 MG/2 ML VIAL IVP PRN (11:56)
[2020-07-24] MEDS ORDERED: HYDROcodone/APAP 5-325MG 1 EACH TAB PO PRN ×2 (11:56)
[2020-07-24] MEDS ORDERED: HYDROmorphone 0.5 MG/0.5 ML SYRINGE IVP PRN ×2 (11:56)
[2020-07-24] MEDS ORDERED: NALOXONE 0.4 MG/ML 1 ML VIAL IV PRN (11:56)
--- NOTE | 2020-07-24 11:56 | P.OP ---
Date of Procedure: 07/24/20 Preoperative Diagnosis: Right knee osteoarthritis Postoperative Diagnosis: Right knee osteoarthritis Procedure(s) Performed: Right total knee arthroplasty Implants: 1. Depuy attune size 7 right cruciate retaining cemented femur 2. Depuy attune size 7 fixed bearing cemented tibial baseplate 3. Depuy attune size 7 fixed bearing 14 mm polyethylene tibial insert 4. Depuy attune 41 mm all polyethylene cemented patella Anesthesia: regional (Adductor canal catheter), local, spinal Surgeon: Mario Amaya Product Tester Fiberglass #1: Dl Coffman Estimated Blood Loss (ml): 45 Pathology: other (bone) Condition: stable Disposition: PACU Indications for Procedure: 80-year-old patient seen with symptomatic right knee osteoarthritis. After treatment options were discussed, he elected to proceed with total knee arthroplasty. Operative Findings: See description of procedure Description of Procedure: Patient was taken to the operative suite after having an adductor canal catheter placed by the department of anesthesia. Patient underwent a spinal anesthetic by the department of anesthesia. Patient was given preoperative IV intake antibiotics and TXA. A well-padded tourniquet was placed about the right lower extremity. The lower extremity was then prepped and draped in the normal sterile orthopedic fashion. The extremity was elevated, a tourniquet was insufflated to 300. A standard anterior incision was made sharply through skin. Dissection was taken down through the subcutaneous soft tissues down to the extensor mechanism. A medial arthrotomy was performed, patella was everted and knee was flexed. There was advanced osteoarthritis noted. I introduced my distal intramedullary femoral drill. I then introduced the distal femoral cutting jig. Alexis TOMPKINS secured the cutting jig with 2 pins. I held retractors in position while Alexis TOMPKINS performed the distal femoral resection through the guide area we now removed her distal femoral cutting guide. We now placed our 4-in-1 femoral cutting block and positioned and it was secured with 2 pins by Alexis TOMPKINS while I held the block in position. The distal femoral finishing was now completed. A proximal tibial cutting guide was positioned. I held the guide in the appropriate position with both hands well Alexis TOMPKINS inserted stabilizing pins into the guide. Proximal tibial cut was made. We now placed a trial femoral component into position, along with an appropriate size tibial tray and insert. We now took the knee through range of motion and had full extension good flexion and good overall soft tissue balance noted. The patella was everted and stabilized with 2 towel clips held by Alexis TOMPKINS while I performed a flush with patellar quad tendon utilizing a fresh sawblade. We templated the patella, appropriate drill holes were made. An appropriate trial patella was positioned, knee was taken through full range of motion with the patella tracking very nicely. The trial patella was removed. Drill holes were made through the femoral component. All trial components were removed after marking off the appropriate rotation of the tibia. Retractors were now positioned along the proximal tibia. An appropriate keel punch was made with the appropriate size tibial guide by myself on Alexis TOMPKINS assisted by holding retractors. At this point appropriate size implants were chosen and opened. The joint was irrigated copiously with pulse lavage mechanical irrigation. The posterior capsule was infiltrated with local analgesic. The wound was irrigated with pulse lavage mechanical irrigation. We mixed antibiotic methylmethacrylate. We placed the knee into flexion. We placed multiple retractors assisted by Alexis TOMPKINS to expose the proximal tibia. Once the methyl methacrylate was ready, the tibial component was cemented into place removing any excess methylmethacrylate form by both myself and Alexis TOMPKINS. The femoral component was cemented into place removing the removing any excess methylmethacrylate performed by both myself and Alexis TOMPKINS. We then inserted the appropriate size polyethylene tibial insert. We made sure that it was locked into position. We took the knee into full extension, and then back in a flexion making sure we had removed any excess methylmethacrylate. The patellar component was then cemented down and secured with clamp. Excess methylmethacrylate removed. We kept the knee in full extension, patellar clamp in position until methylmethacrylate had hardened. Once it had hardened the patellar clamp was removed. The knee was taken through full range of motion. The patella tracked nicely. There was good soft tissue balancing. The tourniquet was now released. Additional hemostasis was achieved via elec trocautery. A second gram of TXA was given. The wound again was irrigated with pulse lavage mechanical irrigation. The superficial soft tissues were infiltrated local analgesic. The extensor mechanism was repaired with #2 Ethibond. We checked the repair with range of motion and it was stable. The subcutaneous soft tissues were repaired with Vicryl in layers. The skin was approximated with pernio/Dermabond. Sterile dressings were applied followed by loose web roll and Karri bandage. The patient was transferred to a bed, and taken to recovery in stable and satisfactory condition. Alexis TOMPKINS assisted with this complex procedure.
--- NOTE | 2020-07-24 13:03 | XR ---
EXAMINATION TYPE: XR knee limited RT DATE OF EXAM: 07/24/2020 COMPARISON: None HISTORY: 80-year-old male evaluation for postoperative abnormality in alignment TECHNIQUE: 2 views FINDINGS: Images show placement of right total knee arthroplasty. Both distal femoral and proximal tibial compo nents of the prosthesis appear well seated without periprosthetic fracture. Alignment grossly anatomi c. Anterior soft tissue swelling with skin mirella, scattered soft tissue air, and intra-articular ai r relating to recent operation. Vascular calcifications are noted. IMPRESSION: Uncomplicated postoperative appearance right total knee arthroplasty.
[2020-07-24] MEDS: SODIUM CHLORIDE 0.9% 1,000 ML IV SCH (17:07)
[2020-07-24] MEDS ORDERED: SENNOSIDES-DOCUSATE SODIUM 1 EACH TAB PO SCH (21:00)
[2020-07-25] MEDS: ENOXAPARIN 30 MG/0.3 ML SYRINGE SQ SCH ×2 (00:21→11:20)
[2020-07-25 07:20] LABS: Glucose,Whole Blood 94 mg/dL (75-99)
--- NOTE | 2020-07-25 07:31 | P.PN ---
Progress Note - Text 07/25/20 649am 80-year-old male status post total knee replacement by Dr. Amaya. Patient has an On-Q pump for postop pain control with a VAS of 2. On-Q pump solution is running at 8 mL an hour. Plan to continue On-Q pump infusion.
[2020-07-25] MEDS: SODIUM CHLORIDE 0.9% 1,000 ML IV SCH (07:49)
[2020-07-25 08:44] VITALS: BP 141/65; PULSE 68; RESP 16; TEMP 98.4
--- NOTE | 2020-07-25 08:51 | P.CONS ---
History of Present Illness - Reason for Consult Consult date: 07/25/20 Medical management diabetes mellitus, prostate disorder Requesting physician: Mario Amaya - Chief Complaint Right knee Osteoarthritis, status post right total knee arthroplasty - History of Present Illness This is a pleasant 80-year-old gentleman with past medical history of prostate cancer-status post radiation/chemotherapy, prostate disorder, kidney stones diabetes mellitus, prior nicotine dependence and multiple other medical issues, status post right total knee arthroplasty for right knee osteoarthritis. Tolerated procedure well. Passing flatus, and pain controlled. Full PT evaluation pending. Denies chest pain, lightheadedness, dizziness or focal deficits. Denies chest pain, palpitations or shortness of breath. Afebrile. Maintaining O2 sats in the 90s on room air. Review of Systems ROS Statement: Those systems with pertinent positive or pertinent negative responses have been documented in the HPI. ROS Other: All systems not noted in ROS Statement are negative. Past Medical History Past Medical History: Cancer, Diabetes Mellitus, Osteoarthritis (OA), Prostate Disorder Additional Past Medical History / Comment(s): PVD, carpal tunnel left hand, hx. prostate cancer 2000-tx. w/radiation & chemo, elevated PSA, low testosterone level and elevated estrogen level, infection left knee area after knee replacement surgeon ("almost gone"), hx kidney stone, loss of feeling fingers left hand History of Any Multi-Drug Resistant Organisms: None Reported Past Surgical History: Joint Replacement, Orthopedic Surgery Additional Past Surgical History / Comment(s): arthroscopy right knee, repair of detached retina right eye, carpal tunnel left hand & trigger finger, cystoscopy, hx stem cell injections knee and hand, left knee replacement, Right knee replacement . Past Anesthesia/Blood Transfusion Reactions: No Reported Reaction Past Psychological History: No Psychological Hx Reported Additional Psychological History / Comment(s): . Smoking Status: Former smoker Past Alcohol Use History: None Reported Additional Past Alcohol Use History / Comment(s): quit smoking @age 50. Past Drug Use History: None Reported - Past Family History Mother Family Medical History: No Reported History Brother(s) Family Medical History: Cancer Medications and Allergies Home Medications Medication Instructions Recorded Confirmed Type metFORMIN HCL [Glucophage] 500 mg PO QAM 08/20/15 07/24/20 History Finasteride [Proscar] 5 mg PO DAILY 07/23/18 07/24/20 History Tamsulosin [Flomax] 0.4 mg PO BID 07/23/18 07/24/20 History Calcium/Magnesium/Zinc 1 each PO DAILY 07/20/20 07/24/20 History [Eapysxb-Gghqanulc-Cfep Tablet] Cholecalciferol [Vitamin D3 (25 25 mcg PO DAILY 07/20/20 07/24/20 History Mcg = 1000 Iu)] Allergies Allergy/AdvReac Type Severity Reaction Status Date / Time No Known Allergies Allergy Verified 07/24/20 08:59 Physical Exam Vitals: Vital Signs Temp Pulse Pulse Resp BP BP Pulse Ox 07/25/20 02:25 98.1 F 74 17 154/72 97 07/24/20 20:25 98.1 F 69 16 117/65 93 L 07/24/20 14:53 72 91/53 07/24/20 14:37 70 115/65 07/24/20 14:22 78 105/66 07/24/20 14:07 72 105/63 07/24/20 13:53 78 94/56 07/24/20 13:23 85 110/75 07/24/20 13:07 97.6 F 72 17 129/65 07/24/20 12:45 80 16 113/48 97 07/24/20 12:30 66 18 120/57 100 07/24/20 12:18 96.7 F L 86 14 113/55 99 07/24/20 09:50 78 16 91/58 97 07/24/20 09:00 97.2 F L 82 16 130/67 97 Intake and Output 07/24/20 07/25/20 07/25/20 22:59 06:59 14:59 Other: Voiding Method Toilet Urinal # Voids 1 2 PHYSICAL EXAM: VITAL SIGNS: As above GENERAL: Sitting up in bed, no acute distress HEENT: Conjunctivae normal. eyes normal. Oral mucosa moist NECK: No JVD. No thyroid enlargement. No LNs CARDIOVASCULAR: S1, S2 regular. No murmur RESPIRATION: Breath sounds diminished in the bases. No rhonchi or crackles. No bronchial breathing. ABDOMEN: Soft, nontender . No guarding. no masses palpable. No ascites, No hepatosplenomegaly.Bowel sounds heard. LEGS: Right knee dressing clean dry and intact, ice pack on top, minimal edema, no calf tenderness, positive DP pulses PSYCHIATRY: Alert and oriented X3, mood and affect normal. NERVOUS SYSTEM: Cranial N 2-12 grossly normal. Moves all 4 limbs. No focal deficits. Strength and sensation grossly intact.. Skin: Warm and dry, no rash Lymphatic system. No LN neck axilla. Assessment and Plan Assessment: Right knee osteoarthritis, status post right total knee arthroplasty Diabetes mellitus History of prostate cancer, status post radiation/chemo History of prostate disorder Former nicotine dependence Osteoarthritis History of kidney stones Plan: Continue on current medication regime ,monitoring and symptomatic treatment. Home meds have been reviewed and resumed accordingly. Consistent carb diet, Accu-Cheks before meals and at bedtime with NovoLog sliding scale. Aggressive pulmonary toileting with incentive spirometer reinforced. Protonix added to med regimen for GI prophylaxis. Anticoagulation and pain management as per primary. PT. Discharge planning in progress as per orthopedic surgery. Follow-up with Dr. Martinez, PCP in [address] Amaya for the consult. The impression and plan of care has been dictated as directed. : I performed a history and examination of this patient, discussed the same with the dictator. I agree with the dictator's note ,documented as a scribe. Any additional findings or plans will be noted.
[2020-07-25] MEDS ORDERED: metFORMIN 500 MG TAB PO SCH (09:00)
[2020-07-25] MEDS ORDERED: TAMSULOSIN 0.4 MG CAP.ER.24H PO SCH (09:00)
[2020-07-25] MEDS ORDERED: PANTOPRAZOLE 40 MG/10 ML VIAL IVP SCH (09:00)
[2020-07-25] MEDS ORDERED: FINASTERIDE 5 MG TAB PO SCH (09:00)
[2020-07-25 10:37] LABS: Basophils # (A) 0.01 X 10*3/uL (0.00-0.10); Basophils % (A) 0.2 %; Eosinophils # (A) 0.02 X 10*3/uL (0.04-0.35); Eosinophils % (A) 0.3 %; HCT 33.6 % (39.6-50.0); HGB 11.1 g/dL (13.0-17.0); Lymphocytes # (A) 0.86 X 10*3/uL (0.90-5.00); Lymphocytes % (A) 14.7 %; MCH 30.7 pg (27.0-32.0); MCV 93.1 fL (80.0-97.0); Mean Platelet Volume 11.1 fL (9.5-12.2); Monocytes # (A) 0.65 X 10*3/uL (0.20-1.00); Monocytes % (A) 11.1 %; Neutrophils # (A) 4.31 X 10*3/uL (1.80-7.70); Neutrophils % (A) 73.4 %; Platelet Count 96 X 10*3/uL (140-440); RBC 3.61 X 10*6/uL (4.40-5.60); RDW 13.9 % (11.5-14.5); WBC 5.87 X 10*3/uL (4.50-10.00)
[2020-07-25 11:41] LABS: Glucose,Whole Blood 124 mg/dL (75-99)
[2020-07-25] MEDS ORDERED: INSULIN ASPART (NovoLOG) 100 UNIT/ML VIAL SQ SCH (12:30)
--- NOTE | 2020-07-25 12:33 | P.PN ---
Subjective Progress Note Date: 07/25/20 Principal diagnosis: s/p right total knee arthroplasty Patient evaluated bedside, he is resting comfortably. He's done very well physical therapy. He is having no issues voiding at this time. He has no headaches, lightheadedness, chest pain, shortness of breath, fever or chills, nausea or vomiting. Objective - Vital Signs Vital signs: Vital Signs Temp 98.4 F 07/25/20 08:42 Pulse 68 07/25/20 08:42 Resp 16 07/25/20 08:42 BP 141/65 07/25/20 08:42 Pulse Ox 96 07/25/20 08:42 Intake & Output 07/24/20 07/25/20 07/25/20 18:59 06:59 18:59 Intake Total 1351 Output Total 45 Balance 1306 Weight 87 kg Intake: IV 1351 Output: Estimated Blood Loss 45 Other: Voiding Method Indwelling Catheter Toilet Urinal # Voids 1 2 - Exam Right lower extremity: Incision is clean, dry, and intact. The foam dressing is in good condition. There is minimal soft tissue swelling and ecchymosis surrounding the medial and lateral aspects of the incision. Calf is soft, no tenderness with palpation. Plantar flexion, dorsiflexion, EHL, FHL are intact. Sensory exam to light touch throughout the extremity is intact, dorsal pedis pulses 2+. - Labs CBC & Chem 7: 07/25/20 06:01 Labs: Abnormal Lab Results - Last 24 Hours (Table) 07/25/20 07/25/20 Range/Units 06:01 11:39 RBC 3.61 L (4.40-5.60) X 10*6/uL Hgb 11.1 L (13.0-17.0) g/dL Hct 33.6 L (39.6-50.0) % Plt Count 96 L (140-440) X 10*3/uL Plt Count Comment DECREASED A Lymphocytes # 0.86 L (0.90-5.00) X 10*3/uL Eosinophils # 0.02 L (0.04-0.35) X 10*3/uL POC Glucose (mg/dL) 124 H (75-99) mg/dL Assessment and Plan Assessment: Status post right total knee arthroplasty Plan: Pain control, utilize Tylenol at discharge DVT prophylaxis, aspirin 81mg twice a day 1 month Home healthcare after discharge Icing and elevating to discuss Wound care instructions were discussed Medical recommendations Plan for discharge home today Time with Patient: Less than 30
--- NOTE | 2020-07-25 12:35 | P.DS ---
Providers Date of admission: 07/24/2020 Expected date of discharge: 07/25/20 Attending physician: Mario Amaya Consults: 07/24/20 11:56 Consult Physician Routine Consulting Provider: Thomas Martinez Reason/Comments: Medical management Do you want consulting provider notified?: Yes Primary care physician: Thomas Martinez Hospital Course: Date of admission: 07/24/2020 Date of discharge: 07/25/2020 Admission diagnosis: Status post right total knee arthroplasty Discharge diagnosis: Same Attending physician: Dr. Amaya Surgical procedures: Right total knee arthroplasty Brief history: Patient is a 80-year-old male with a history of primary right knee osteoarthritis. At this point patient has failed conservative treatment measures and has opted to proceed with a elective right total knee arthroplasty. Hospital course: Details of patient's surgery can be found in operative report. Patient tolerated the procedure well and was subsequently transported to ortho pedic floor. Patient's orthopeidc and medical care was provided daily. Patient had daily laboratory tests performed for evaluation of overall blood counts. Patient had daily physical therapy to include strengthening range of motion as well as education with walker ambulation. Patient was treated with Lovenox for their postoperative DVT prophylaxis during their inpatient stay. Patient was noted to have a relatively uneventful postoperative course. Patient reported satisfactory pain control with oral pain medications by postoperative day 0. Patient showed satisfactory progress with physical therapy. Patient moved steadily through the program and had no difficulty meeting the goals by postoperative day 1. Given patient's otherwise satisfactory course and having met physical therapy goals, plan is to discharge patient home on postoperative day 1. Discharge condition/disposition: Patient will be discharged home in stable condition. Discharge medications: Instructions are given on resumption of patient's normal daily medications per primary care recommendation, in addition patient will be prescribed Tylenol 500mg, aspirin 81 mg. Discharge instructions: 1. Wound care and infection precautions, keep incision dry and covered while showering, no lotions, creams, moisturizers. No soaking, tubs, pools, hottubs. Do not scrub over the incision. 2. Weight-bear as tolerated with walker / cane until follow-up. 3. Ice and elevate when necessary. Do not exceed 20 minutes per hour with ice pack. 4. Utilize compression sleeve until seen at first follow up appointment. 5. Visiting nursing care. 6. Home physical therapy including home CPM. 7. Pain meds and anticoagulants per prescription. 8. Pain medication has potential to cause constipation. Increase oral fluid and fiber intake. Contact primary care provider if you have not had a bowel movement within 48 hours after discharge 9. No anti-inflammatory medication until discussed at first post operative visit, this including Motrin, Aleve, Mobic, Diclofenac 10. Follow up in office at 2 weeks postop with Alexis Coffman PA-C 11. Follow up with your primary care doctor 7-10 days after discharge. 12. Contact [facility] with any questions, . Procedures: Right total knee arthroplasty Patient Condition at Discharge: Good Plan - Discharge Summary Discharge Rx Participant: No New Discharge Prescriptions: New Aspirin [Adult Low Dose Aspirin EC] 81 mg PO BID #60 tablet. Acetaminophen Tab [Tylenol Tab] 500 mg PO Q6H PRN #40 tablet PRN Reason: Pain No Action metFORMIN HCL [Glucophage] 500 mg PO QAM Finasteride [Proscar] 5 mg PO DAILY Tamsulosin [Flomax] 0.4 mg PO BID Cholecalciferol [Vitamin D3 (25 Mcg = 1000 Iu)] 25 mcg PO DAILY Calcium/Magnesium/Zinc [Qcnroht-Sugqlteur-Tvrq Tablet] 1 each PO DAILY Discharge Medication List metFORMIN HCL [Glucophage] 500 mg PO QAM 08/20/15 [History] Finasteride [Proscar] 5 mg PO DAILY 07/23/18 [History] Tamsulosin [Flomax] 0.4 mg PO BID 07/23/18 [History] Calcium/Magnesium/Zinc [Eelpmmr-Ziyobgqfl-Oebk Tablet] 1 each PO DAILY 07/20/20 [History] Cholecalciferol [Vitamin D3 (25 Mcg = 1000 Iu)] 25 mcg PO DAILY 07/20/20 [History] Acetaminophen Tab [Tylenol Tab] 500 mg PO Q6H PRN #40 tablet 07/25/20 [Rx] Aspirin [Adult Low Dose Aspirin EC] 81 mg PO BID #60 tablet. 07/25/20 [Rx] Follow up Appointment(s)/Referral(s): Thomas Martinez DO [Primary Care Provider] - 1 Week [facility],Equipment [NON-STAFF] - (*Please call [facility] once home to arrange delivery of your Continuous Passive Motion (CPM) machine.) Branch,Dl M, PAC [PHYSICIAN ENVIRONMENTAL HEALTH SPECIALIST] - 08/09/20 1:50 pm [facility] Visiting Nurse, [NON-STAFF] - ([facility] will call you by tomorrow afternoon. Your first visit should be on 07/26/20.) Patient Instructions/Handouts: *Surgery [facility] - On-Q Pain Pump Discharge Instructions, Precautions after Total Joint Replacement Surgery (DC), Joint Replacement Surgery (DC), Knee Replacement (DC) Activity/Diet/Wound Care/Special Instructions: Orthopedic Discharge Instructions: 1. Wound care and infection precautions, keep incision dry and covered while showering, no lotions, creams, moisturizers. No soaking, pools, hot tubs. Do not scrub over incision. 2. Weight-bear as tolerated with walker / cane until follow-up. 3. Ice and elevate when necessary. Do not exceed 20 minutes per hour with ice pack. 4. Utilize compression sleeve until seen at first follow up appointment. 5. Pain meds and anticoagulants per prescription. 6. Pain medication has potential to cause constipation. Increase oral fluid and fiber intake. Contact primary care provider if you have not had a bowel movement within 48 hours after discharge. 7. No anti-inflammatory medication until discussed at first post operative visit, this including Motrin, Aleve, Mobic, Diclofenac. 8. Follow up in office at 2 weeks postop with Alexis Coffman PA-C 9. Follow up with your primary care doctor 7-10 days after discharge. 10. Contact [facility] with any questions, . Wound care instructions: 1. Okay to remove foam dressing on 07/31/2020 2. Please keep incision covered and dry while showering until removable of foam dressing Discharge Disposition: HOME WITH HOME HEALTH SERVICES
[2020-07-25 15:52] LABS: African American GFR (CKD) 97.1 (60.0-200.0); Anion Gap 5.4 mmol/L (4.00-12.00); BUN/Creat Ratio 28.75 Ratio (12.00-20.00); Calcium 8.3 mg/dL (8.7-10.3); Carbon Dioxide 26.6 mmol/L (21.6-31.8); Non-African American GFR(CKD) 83.8 (60.0-200.0); Potassium 3.8 mmol/L (3.5-5.5)
== END 2020-07-25 15:51 | disposition home health service (06) ==
LOC: OR 08:32 → 4SSUR 11:45 → OR 07-25 15:51
PROVIDERS: ATTEND Orthopaedic Surgery
DX: M17.11 Unilateral primary osteoarthritis, right knee (principal); I10 Essential (primary) hypertension; E11.9 Type 2 diabetes mellitus without complications; I73.9 Peripheral vascular disease, unspecified; Z85.46 Personal history of malignant neoplasm of prostate; Z96.652 Presence of left artificial knee joint; Z79.84 Long term (current) use of oral hypoglycemic drugs; Z79.899 Other long term (current) drug therapy; Z92.21 Personal history of antineoplastic chemotherapy; Z92.3 Personal history of irradiation; Z87.442 Personal history of urinary calculi; Z98.890 Other specified postprocedural states; Z87.891 Personal history of nicotine dependence; Z80.9 Family history of malignant neoplasm, unspecified
CPT/HCPCS: 97110; 97161; 64448; 76942; 80048; 85025; 88300; 73560; 27447; C1776; C1713; S0138; J2250; J0690 ×3; J2405; J1650; J2795

== ENCOUNTER 2020-08-07 11:48 | Emergency (ER) | payer MEDICARE, OTHER ==
[2020-08-07 11:56] VITALS: BP 159/76; PULSE 77; RESP 18; TEMP 97.7
[2020-08-07] MEDS ORDERED: SODIUM CHLORIDE 0.9% 500 ML IV STA (12:32)
[2020-08-07 12:56] LABS: Basophils % (A) 0 %; Eosinophils # (A) 0.1 k/uL (0-0.7); Eosinophils % (A) 1 %; HGB 13.5 gm/dL (13.0-17.5); Lymphocytes # (A) 1.3 k/uL (1.0-4.8); Lymphocytes % (A) 15 %; MCH 32.1 pg (25.0-35.0); MCHC 34.6 g/dL (31.0-37.0); MCV 92.7 fL (80.0-100.0); Mean Platelet Volume 7.9; Monocytes # (A) 0.6 k/uL (0-1.0); Monocytes % (A) 7 %; Neutrophils # (A) 6.7 k/uL (1.3-7.7); Neutrophils % (A) 76 %; Platelet Count 191 k/uL (150-450); RDW 14.4 % (11.5-15.5); WBC 8.9 k/uL (3.8-10.6)
[2020-08-07 13:04] LABS: Potassium 4.3 mmol/L (3.5-5.1)
[2020-08-07 13:05] LABS: ALT 21 U/L (4-49); AST 37 U/L (17-59); African American GFR (CKD) >90 (>60 ml/min/1.73 sqM); Alkaline Phosphatase 131 U/L (38-126); Anion Gap 12 mmol/L; Blood Urea Nitrogen 27 mg/dL (9-20); Calcium 9.5 mg/dL (8.4-10.2); Carbon Dioxide 23 mmol/L (22-30); Chloride 102 mmol/L (98-107); Glucose 111 mg/dL (74-99); Non-African American GFR(CKD) 88 (>60 ml/min/1.73 sqM); Sodium 137 mmol/L (137-145); Total Protein 7.4 g/dL (6.3-8.2)
--- NOTE | 2020-08-07 13:11 | XR ---
2 view abdomen HISTORY: Pain 2 views of the abdomen on 4 images There is an underlying scoliotic curvature to the thoracic lumbar spine. The lung bases are clear. Th ere is no evident pneumoperitoneum or bowel obstruction. Degenerative disc changes are present in the visualized spine. Dense vascular calcifications are noted incidentally. IMPRESSION: Nonobstructive bowel gas pattern. Additional findings above.
--- NOTE | 2020-08-07 13:42 | ED ---
General Adult HPI - General Source: patient, RN notes reviewed Mode of arrival: wheelchair Limitations: no limitations <Nathanael Marion - Last Filed: 08/07/20 14:05> <Harjinder Marcus - Last Filed: 08/07/20 15:17> - General Chief complaint: Abdominal Pain Stated complaint: Constipation Time Seen by Provider: 08/07/20 11:57 - History of Present Illness Initial comments: Patient is a 80-year-old male presented to the emergency room status post right knee replacement times approximately 2 weeks, presented to the emergency room today with a chief complaint of no bowel movement in the last week. Patient does admit that he did have bowel movement after surgery. He states that over the last week he's not had any bowel movement. He states that he is passing gas. Patient does admit that he's tried some laxatives and also has tried an enema at home with no relief. Patient denies any recent fever, chills, shortness of breath, chest pain, back pain, nausea or vomiting, headaches or visual changes, or any other complaints. (Nathanael Marion) - Related Data Home Medications Medication Instructions Recorded Confirmed metFORMIN HCL [Glucophage] 500 mg PO QAM 08/20/15 08/07/20 Finasteride [Proscar] 5 mg PO DAILY 07/23/18 08/07/20 Tamsulosin [Flomax] 0.4 mg PO BID 07/23/18 08/07/20 Calcium/Magnesium/Zinc 1 tab PO DAILY 07/20/20 08/07/20 [Ioydcap-Xzyucmhwb-Vqpi Tablet] Cholecalciferol [Vitamin D3 (25 25 mcg PO DAILY 07/20/20 08/07/20 Mcg = 1000 Iu)] Previous Rx's Medication Instructions Recorded Acetaminophen Tab [Tylenol Tab] 500 mg PO Q6H PRN #40 tablet 07/25/20 Aspirin [Adult Low Dose Aspirin EC] 81 mg PO BID #60 tablet. 07/25/20 Allergies Allergy/AdvReac Type Severity Reaction Status Date / Time No Known Allergies Allergy Verified 08/07/20 13:30 Review of Systems ROS Other: All systems not noted in ROS Statement are negative. <Nathanael Marion - Last Filed: 08/07/20 14:05> ROS Other: All systems not noted in ROS Statement are negative. <Harjinder Marcus - Last Filed: 08/07/20 15:17> ROS Statement: Those systems with pertinent positive or pertinent negative responses have been documented in the HPI. Past Medical History Past Medical History: Cancer, Diabetes Mellitus, Osteoarthritis (OA), Prostate Disorder Additional Past Medical History / Comment(s): PVD, carpal tunnel, neuropathy, hx. prostate cancer 2000-tx. 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 Past Anesthesia/Blood Transfusion Reactions: No Reported Reaction Past Psychological History: No Psychological Hx Reported Smoking Status: Former smoker Past Alcohol Use History: Rare Past Drug Use History: None Reported - Past Family History Mother Family Medical History: No Reported History Brother(s) Family Medical History: Cancer <Nathanael Marion - Last Filed: 08/07/20 14:05> General Exam Limitations: no limitations <Nathanael Marion - Last Filed: 08/07/20 14:05> - General Exam Comments Initial Comments: General: The patient is awake and alert, in no distress, and does not appear acutely ill. Eye: extra-ocular movements are intact. There is normal conjunctiva bilaterally. Ears, nose, mouth and throat: There are moist mucous membranes and no oral lesions. Neck: The neck is supple Cardiovascular: There is a regular rate and rhythm. Respiratory: Lungs are clear to auscultation, respirations are non-labored, breath sounds are equal. No wheezes, stridor, rales, or rhonchi. Gastrointestinal: Admits soft on palpation. Nontender. No rebound, guarding. Neurological: A&O x 3. CN II-XII intact, There are no obvious motor or sensory deficits. Coordination appears grossly intact. Speech is normal. Skin: Skin is warm and dry and no rashes or lesions are noted. Psychiatric: Cooperative, appropriate mood & affect, normal judgment. (Nathanael Marion) Course <DanybernardaHarjinder Moise - Last Filed: 08/07/20 15:17> Vital Signs 08/07/20 11:51 Temperature 97.7 F Pulse Rate 77 Respiratory 18 Rate Blood Pressure 159/76 O2 Sat by Pulse 98 Oximetry - Reevaluation(s) Reevaluation #1: 08/07/20 15:16 Patient reevaluated, feeling much better after a large bowel movement. He is instructed to follow-up with his primary care physician regarding elevated bilir ubin and alkaline phosphatase. He has a remote history of prostate cancer and [facility] [place] and is scheduled for a [facility]. No right upper quadrant pain. (Harjinder Marcus) Medical Decision Making - Lab Data Result diagrams: 08/07/20 12:46 08/07/20 12:46 <Nathanael Marion - Last Filed: 08/07/20 14:05> - Lab Data Result diagrams: 08/07/20 12:46 08/07/20 12:46 <Harjinder Marcus - Last Filed: 08/07/20 15:17> - Lab Data Lab Results 08/07/20 08/07/20 08/07/20 Range/Units 12:46 12:46 13:38 WBC 8.9 (3.8-10.6) k/uL RBC 4.20 L (4.30-5.90) m/uL Hgb 13.5 (13.0-17.5) gm/dL Hct 39.0 (39.0-53.0) % MCV 92.7 (80.0-100.0) fL MCH 32.1 (25.0-35.0) pg MCHC 34.6 (31.0-37.0) g/dL RDW 14.4 (11.5-15.5) % Plt Count 191 (150-450) k/uL MPV 7.9 Neutrophils % 76 % Lymphocytes % 15 % Monocytes % 7 % Eosinophils % 1 % Basophils % 0 % Neutrophils # 6.7 (1.3-7.7) k/uL Lymphocytes # 1.3 (1.0-4.8) k/uL Monocytes # 0.6 (0-1.0) k/uL Eosinophils # 0.1 (0-0.7) k/uL Basophils # 0.0 (0-0.2) k/uL Sodium 137 (137-145) mmol/L Potassium 4.3 (3.5-5.1) mmol/L Chloride 102 (98-107) mmol/L Carbon Dioxide 23 (22-30) mmol/L Anion Gap 12 mmol/L BUN 27 H (9-20) mg/dL Creatinine 0.71 (0.66-1.25) mg/dL Est GFR (CKD-EPI)AfAm >90 (>60 ml/min/1.73 sqM) Est GFR (CKD-EPI)NonAf 88 (>60 ml/min/1.73 sqM) Glucose 111 H (74-99) mg/dL Calcium 9.5 (8.4-10.2) mg/dL Total Bilirubin 3.0 H (0.2-1.3) mg/dL AST 37 (17-59) U/L ALT 21 (4-49) U/L Alkaline Phosphatase 131 H (38-126) U/L Total Protein 7.4 (6.3-8.2) g/dL Albumin 4.0 (3.5-5.0) g/dL Urine Color [place] Urine Appearance Cloudy (Clear) Urine pH 5.0 (5.0-8.0) Ur Specific [place] 1.031 (1.001-1.035) Urine Protein Trace H (Negative) Urine Glucose (UA) Negative (Negative) Urine Ketones Negative (Negative) Urine Blood Moderate H (Negative) Urine Nitrite Negative (Negative) Urine Bilirubin 1+ H (Negative) Urine Urobilinogen 3.0 (<2.0) mg/dL Ur Leukocyte Esterase Negative (Negative) Urine RBC 21 H (0-5) /hpf Urine WBC 3 (0-5) /hpf Amorphous Sediment Rare H (None) /hpf Urine Bacteria Rare H (None) /hpf Urine Mucus Many H (None) /hpf Disposition Is patient prescribed a controlled substance at d/c from ED?: No Time of Disposition: 14:07 <Nathanael Marion - Last Filed: 08/07/20 14:05> <Harjinder Marcus - Last Filed: 08/07/20 15:17> Clinical Impression: Constipation Disposition: HOME SELF-CARE Condition: Good Instructions (If sedation given, give patient instructions): Constipation (ED) Additional Instructions: Please continue stool softener and laxative as discussed and follow-up family doctor. Return to emergency room for any other concerns. Referrals: Thomas Martinez DO [Primary Care Provider] - 1-2 days
[2020-08-07 14:06] LABS: Amorphous Sediment,Urine Rare /hpf; Appearance,Urine Cloudy (Clear); Bacteria,Urine Rare /hpf; Bilirubin,Urine 1+ (Negative); Blood,Urine Moderate (Negative); Color,Urine Orange; Glucose,Urine (UA) Negative (Negative); Ketones,Urine Negative (Negative); Leukocyte Esterase,Urine Negative (Negative); Mucus,Urine Many /hpf; Nitrite,Urine Negative (Negative); Protein,Urine Trace (Negative); RBC,Urine 21 /hpf (0-5); Specific Gravity,Urine 1.031 (1.001-1.035); WBC,Urine 3 /hpf (0-5)
== END 2020-08-07 15:30 | disposition home or self-care (01) ==
LOC: EC 11:48
DX: K59.00 Constipation, unspecified (principal); E11.40 Type 2 diabetes mellitus with diabetic neuropathy, unspecified; E11.51 Type 2 diabetes mellitus with diabetic peripheral angiopathy without gangrene; Z79.84 Long term (current) use of oral hypoglycemic drugs; Z79.899 Other long term (current) drug therapy; Z87.891 Personal history of nicotine dependence; Z96.651 Presence of right artificial knee joint; Z85.46 Personal history of malignant neoplasm of prostate
CPT/HCPCS: 36415; 74019; 80053; 81001; 85025; 99284

== ENCOUNTER → 2021-06-11 | Outpatient (CLI) | payer MEDICARE, OTHER ==
--- NOTE | 2021-06-11 11:11 | US ---
EXAMINATION TYPE: US carotid duplex BILAT DATE OF EXAM: 06/11/2021 COMPARISON: NONE CLINICAL HISTORY: I10 Hypertention, I65.23 Carotid Stenosis. EXAM MEASUREMENTS: RIGHT: Peak Systolic Velocity (PSV) cm/sec ----- Right CCA: 88.1 ----- Right ICA: 125.8 ----- Right ECA: 75.0 ICA/CCA ratio: 1.4 RIGHT: End Diastole cm/sec ----- Right CCA: 22.7 ----- Right ICA: 34.3 ----- Right ECA: 16.9 LEFT: Peak Systolic Velocity (PSV) cm/sec ----- Left CCA: 93.9 ----- Left ICA: 86.2 ----- Left ECA: 128.9 ICA/CCA ratio: 0.9 LEFT: End Diastole cm/sec ----- Left CCA: 21.2 ----- Left ICA: 31.8 ----- Left ECA: 0 VERTEBRALS (direction of flow): Right Vertebral: Antegrade Left Vertebral: Antegrade Rhythm: Normal IMPRESSION: No evidence for hemodynamically significant stenosis. Criteria for Assigning % of Stenosis / Diameter reduction (Estimation based on the indirect measurements of the internal carotid artery velocities (ICA PSV). 1. Normal (no stenosis)=ICA PSV < 125 cm/s: ratio < 2.0: ICA EDV<40 cm/s. 2. Less than 50% stenosis=ICA PSV < 125 cm/s: ratio < 2.0: ICA EDV<40 cm/s. 3. 50 to 69% stenosis=ICA PSV of 125 to 230 cm/s: ration 2.0 ? 4.0: ICA EDV 40-100 cm/s. 4. Greater than 70% stenosis to near occlusion= ICA PSV > 230 cm/s: ratio > 4.0: ICA EDV > 100 cm/s. 5. Near occlusion= ICA PSV velocities may be low or undetectable: variable ratio and ICA EDV. 6. Total occlusion=unable to detect flow.
--- NOTE | 2021-06-12 08:19 | ECHOF ---
Referral Reason:I10 Hypertention, I65.23 Carotid Stenosis MEASUREMENTS -------- HEIGHT: 170.2 cm WEIGHT: 81.6 kg BP: RVIDd: 3.6 cm (< 3.3) IVSd: 1.4 cm (0.6 - 1.1) LVIDd: 3.4 cm (3.9 - 5.3) LVPWd: 1.8 cm (0.6 - 1.1) IVSs: 1.6 cm LVIDs: 2.6 cm LVPWs: 1.7 cm LAESV Index (A-L): 30.45 ml/m Ao Diam: 2.5 cm (2.0 - 3.7) AV Cusp: 1.9 cm (1.5 - 2.6) LA Diam: 4.0 cm (2.7 - 3.8) MV EXCURSION: 15.279 mm (> 18.000) MV EF SLOPE: 30 mm/s (70 - 150) EPSS: 0.4 cm MV E Gabriel: 1.29 m/s MV DecT: 278 ms MV A Gabriel: 1.45 m/s MV E/A Ratio: 0.89 AV maxP.35 mmHg AV meanP.86 mmHg RAP: 5.00 mmHg RVSP: 29.89 mmHg FINDINGS -------- Sinus rhythm. This was a technically adequate study. The left ventricular size is normal. There is moderate concentric left ventricular hypertrophy. O verall left ventricular systolic function is normal with, an EF between 55 - 60 %. The right ventricle is mildly enlarged. LA is midly dilated 29-33ml/m2. The right atrium is mildly enlarged. Interatrial and interventricular septum intact. The aortic valve is trileaflet and appears structurally normal. There is mild aortic valve sclerosi s. There is no evidence of aortic regurgitation. There is no evidence of aortic stenosis. Moderate mitral annular calcification present. Mild mitral regurgitation is present. Mild tricuspid regurgitation present. There is no evidence of pulmonary hypertension. The right v entricular systolic pressure, as measured by Doppler, is 29.89mmHg. There is no pulmonic regurgitation present. The aortic root size is normal. IVC Not well visulized. Echo free space represents a pericardial fat pad. There is no pericardial effusion. CONCLUSIONS -------- 1. The left ventricular size is normal. 2. There is moderate concentric left ventricular hypertrophy. 3. Overall left ventricular systolic function is normal with, an EF between 55 - 60 %. 4. The right ventricle is mildly enlarged. 5. LA is midly dilated 29-33ml/m2. 6. The right atrium is mildly enlarged. 7. There is mild aortic valve sclerosis. 8. Moderate mitral annular calcification present. 9. Mild mitral regurgitation is present. 10. Mild tricuspid regurgitation present. REFINED SYRUP OPERATOR: Charmaine Oshea RDCS
== END | disposition home or self-care (01) ==
LOC: RADUSWWP 10:08
PROVIDERS: ATTEND Family Medicine
DX: I10 Essential (primary) hypertension (principal); I65.23 Occlusion and stenosis of bilateral carotid arteries
CPT/HCPCS: 93306; 93880

== ENCOUNTER → 2021-10-30 | Outpatient (CLI) | payer MEDICARE, OTHER ==
[2021-10-30 22:47] LABS: HCT 39.5 % (39.6-50.0); MCH 30.3 pg (27.0-32.0); MCHC 32.9 g/dL (32.0-37.0); MCV 92.1 fL (80.0-97.0); Mean Platelet Volume 11.1 fL (9.5-12.2); NRBC Per 100 WBC 0 /100 WBCS (0.0-0.0); Platelet Count 117 X 10*3/uL (140-440); RBC 4.29 X 10*6/uL (4.40-5.60); RDW 13.8 % (11.5-14.5)
[2021-10-31 00:09] LABS: ALT 15 U/L (10-49); AST 30 U/L (14-35); African American GFR (CKD) 99.4 (60.0-200.0); Albumin/Globulin Ratio 1.34 (1.60-3.17); Alkaline Phosphatase 88 U/L (41-126); BUN/Creat Ratio 27.05 Ratio (12.00-20.00); Blood Urea Nitrogen 20.1 mg/dL (9.0-27.0); C Reactive Protein <0.30 mg/dL (0.00-0.80); Calcium 9.5 mg/dL (8.7-10.3); Carbon Dioxide 22.6 mmol/L (20.0-27.5); Chloride 106 mmol/L (96-109); Chol/HDL Ratio 3.33 Ratio; Glucose 131 mg/dL (70-110); Non-African American GFR(CKD) 85.8 (60.0-200.0); Potassium 4.5 mmol/L (3.5-5.5); Sodium 140 mmol/L (135-145)
== END | disposition home or self-care (01) ==
LOC: LABWHC1 15:10
PROVIDERS: ATTEND Family Medicine
DX: R53.83 Other fatigue (principal); E56.8 Deficiency of other vitamins; R20.9 Unspecified disturbances of skin sensation
CPT/HCPCS: 36415; 80053; 80061; 82306; 82607; 82746; 84443; 85027; 86038; 86140

== ENCOUNTER 2022-06-24 18:06 | Inpatient (IN) | payer MEDICARE, OTHER ==
[2022-06-24 18:30] VITALS: RESP 16
--- NOTE | 2022-06-24 19:55 | ED ---
Skin/Abscess/FB HPI - General Source: patient, RN notes reviewed Mode of arrival: ambulatory Limitations: no limitations <Polina Benites - Last Filed: 06/24/22 19:55> <Lon Molina - Last Filed: 06/26/22 03:23> - General Chief complaint: Skin/Abscess/Foreign Body Stated complaint: blisters left leg/swelling Time Seen by Provider: 06/24/22 19:53 - History of Present Illness Initial comments: Patient is an 82 year old male who presents to the emergency department for left lower extremity swelling. Symptoms started 4 days ago in the lower leg, associated with redness and mild pain. Patient cannot recall any injury, scratches, bug bites. Does admit a history of cellulitis. Denies MRSA history. Denies history of DVT and PE. No fever, chills, nausea, vomiting. (Polina Benites) - Related Data Home Medications Medication Instructions Recorded Confirmed Finasteride [Proscar] 5 mg PO DAILY 07/23/18 06/25/22 Tamsulosin [Flomax] 0.4 mg PO BID 07/23/18 06/25/22 Cholecalciferol [Vitamin D3 (25 25 mcg PO DAILY 07/20/20 06/25/22 Mcg = 1000 Iu)] Calcium Carbonate 500 mg PO DAILY 06/25/22 06/25/22 Ergocalciferol [Vitamin D2 (1250 1,250 mcg PO Q7D 06/25/22 06/25/22 Mcg = 02478 Iu)] Furosemide [Lasix] 20 mg PO DAILY 06/25/22 06/25/22 Meclizine [Antivert] 12.5 mg PO BID PRN 06/25/22 06/25/22 Montelukast [Singulair] 10 mg PO HS 06/25/22 06/25/22 Trospium Chloride [Sanctura] 20 mg PO BID 06/25/22 06/25/22 traZODone HCL [Desyrel] 50 mg PO HS PRN 06/25/22 06/25/22 Previous Rx's Medication Instructions Recorded Amoxic-Pot Clav 875-125Mg 1 tab PO BID 7 Days #14 tab 06/25/22 [Augmentin 875-125] Cholestyramine (with Sugar) 4 gm PO TID BETWEEN MEALS #42 06/25/22 [Questran Packet] packet Allergies Allergy/AdvReac Type Severity Reaction Status Date / Time No Known Allergies Allergy Verified 06/25/22 09:43 Review of Systems ROS Other: All systems not noted in ROS Statement are negative. <Polina Benites - Last Filed: 06/24/22 19:55> ROS Other: All systems not noted in ROS Statement are negative. <Lon Molina - Last Filed: 06/26/22 03:23> ROS Statement: Those systems with pertinent positive or pertinent negative responses have been documented in the HPI. Past Medical History Past Medical History: Cancer, Diabetes Mellitus, Osteoarthritis (OA), Prostate Disorder Additional Past Medical History / Comment(s): PVD, carpal tunnel, neuropathy, hx. prostate cancer 2000-tx. 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, left knee replacement 2018 Past Anesthesia/Blood Transfusion Reactions: No Reported Reaction Past Psychological History: No Psychological Hx Reported Smoking Status: Former smoker Past Alcohol Use History: Rare Past Drug Use History: None Reported - Past Family History Mother Family Medical History: No Reported History Brother(s) Family Medical History: Cancer <Polina Benites - Last Filed: 06/24/22 19:55> General Exam Limitations: no limitations <Polina Benites - Last Filed: 06/24/22 19:55> Limitations: no limitations General appearance: alert, in no apparent distress Head exam: Present: atraumatic, normocephalic, normal inspection Eye exam: Present: normal appearance Neck exam: Present: normal inspection Respiratory exam: Present: normal lung sounds bilaterally. Absent: respiratory distress, wheezes, rales, rhonchi, stridor Cardiovascular Exam: Present: regular rate, normal rhythm, normal heart sounds. Absent: systolic murmur, diastolic murmur, rubs, gallop, clicks Extremities exam: Present: pedal edema Neurological exam: Present: alert, oriented X3, CN II-XII intact Psychiatric exam: Present: normal affect, normal mood Skin exam: Present: warm, erythema (Left lower leg), abrasion (Multiple abrasions) <Lon Molina - Last Filed: 06/26/22 03:23> Course Vital Signs 06/24/22 18:25 Temperature 98 F Pulse Rate 75 Respiratory 16 Rate Blood Pressure 147/67 O2 Sat by Pulse 95 Oximetry Medical Decision Making - Lab Data Result diagrams: 06/24/22 21:03 06/24/22 21:03 <Lon Molina - Last Filed: 06/26/22 03:23> - Medical Decision Making Was pt. sent in by a medical professional or institution ([facility], [facility], urgent care, hospital, or [facility]...) When possible be specific @ -[No] Did you speak to anyone other than the patient for history (EMS, parent, family, police, friend...)? What history was obtained from this source @ -[No] Did you review nursing and triage notes (agree or disagree)? Why? @ -[I reviewed and agree with nursing and triage notes] Were old charts reviewed (outside hosp., previous admission, EMS record, old EKG, old radiological studies, urgent care reports/EKG's, [facility] records)? Report findings @ -[No old charts were reviewed] Differential Diagnosis (chest pain, altered mental status, abdominal pain women, abdominal pain men, vaginal bleeding, weakness, fever, dyspnea, syncope, headache, dizziness, GI bleed, back pain, seizure, CVA, palpatations, mental health)? @ -Differential includes cellulitis, DVT, vascular insufficiency, osteomyelitis EKG interpreted by me (3pts min.). @ -None X-rays interpreted by me (1pt min.). @ -No acute process CT interpreted by me (1pt min.). @ -[None done] U/S interpreted by me (1pt. min.). @ -And no, radiologist report is reviewed. Negative for DVT What testing was considered but not performed or refused? (CT, X-rays, U/S, labs)? Why? @ -[None] What meds were considered but not given or refused? Why? @ -[None] Did you discuss the management of the patient with other professionals (professionals i.e. [facility], [facility], lab, RT, psych nurse, social media job titles, box finisher, teacher, chief scientific officer, case fitter)? Give summary @ -Discussed with admitting physician Dr. Hargrove Was smoking cessation discussed for >3mins.? @ -[No] Was critical care preformed (if so, how long)? @ -[No] Were there social determinants of health that impacted care today? How? (Homelessness, low income, unemployed, alcoholism, drug addiction, transportation, low edu. Level, literacy, decrease access to med. care, usp, rehab)? @ -[No] Was there de-escalation of care discussed even if they declined (Discuss DNR or withdrawal of care, Hospice)? DNR status @ -[No] What co-morbidities impacted this encounter? (DM, HTN, Smoking, COPD, CAD, Cancer, CVA, ARF, Chemo, Hep., AIDS, mental health diagnosis, sleep apnea, morbid obesity)? @ -Diabetes Was patient admitted / discharged? Hospital course, mention meds given and route, prescriptions, significant lab abnormalities, going to OR and other pertinent info. @ -Patient is an 82-year-old male history of diabetes presenting with chief complaint of left lower leg redness and swelling for the last 4 days. Patient notes some open sores to the leg as well. Admits to increased pain. On physical examination there is erythema that is circumferential around the extremity. He admits to tenderness on palpation. CBC shows no leukocytosis or anemia. CMP is grossly unremarkable. Ultrasound shows no evidence of DVT. X- ray shows no acute process. Patient will be admitted for cellulitis and IV antibiotics. Patient is agreeable with this plan. I discussed this case with Dr. Hargrove who accepts admission. I discussed this case with my attending Dr. Card. Undiagnosed new problem with uncertain prognosis? @ -[No] Drug Therapy requiring intensive monitoring for toxicity (Heparin, Nitro, Insulin, Cardizem)? @ -[No] Were any procedures done? @ -[No] Diagnosis/symptom? @ -Cellulitis Acute, or Chronic, or Acute on Chronic? @ -Acute Uncomplicated (without systemic symptoms) or Complicated (systemic symptoms)? @ -Uncomplicated Side effects of treatment? @ -[No] Exacerbation, Progression, or Severe Exacerbation? @ -[No] Poses a threat to life or bodily function? How? (Chest pain, USA, NC, pneumonia, PE, COPD, DKA, ARF, appy, cholecystitis, CVA, Diverticulitis, Homicidal, Suicidal, threat to staff... and all critical care pts) @ -Yes (Lon Molina) - Lab Data Lab Results 06/24/22 06/24/22 06/24/22 Range/Units 21:03 21:03 21:03 WBC 6.2 (3.8-10.6) k/uL RBC 4.27 L (4.30-5.90) m/uL Hgb 13.6 (13.0-17.5) gm/dL Hct 40.8 (39.0-53.0) % MCV 95.6 (80.0-100.0) fL MCH 31.8 (25.0-35.0) pg MCHC 33.3 (31.0-37.0) g/dL RDW 13.9 (11.5-15.5) % Plt Count 100 L (150-450) k/uL MPV 8.9 Neutrophils % 84 % Lymphocytes % 10 % Monocytes % 4 % Eosinophils % 1 % Basophils % 0 % Neutrophils # 5.2 (1.3-7.7) k/uL Lymphocytes # 0.6 L (1.0-4.8) k/uL Monocytes # 0.2 (0-1.0) k/uL Eosinophils # 0.1 (0-0.7) k/uL Basophils # 0.0 (0-0.2) k/uL Sodium 136 L (137-145) mmol/L Potassium 4.8 (3.5-5.1) mmol/L Chloride 106 (98-107) mmol/L Carbon Dioxide 23 (22-30) mmol/L Anion Gap 7 mmol/L BUN 17 (9-20) mg/dL Creatinine 0.63 L (0.66-1.25) mg/dL Est GFR (CKD-EPI)AfAm >90 (>60 ml/min/1.73 sqM) Est GFR (CKD-EPI)NonAf >90 (>60 ml/min/1.73 sqM) Glucose 183 H (74-99) mg/dL Plasma Lactic Acid Ivan 1.8 (0.7-2.0) mmol/L Calcium 9.2 (8.4-10.2) mg/dL Total Bilirubin 1.2 (0.2-1.3) mg/dL AST 48 (17-59) U/L ALT 31 (4-49) U/L Alkaline Phosphatase 123 (38-126) U/L Total Protein 7.2 (6.3-8.2) g/dL Albumin 4.1 (3.5-5.0) g/dL Disposition <Polina Benites - Last Filed: 06/24/22 19:55> Time of Disposition: : Decision to Admit Reason: Admit from EC Decision Date: 06/25/22 Decision Time: :27 <Lon Molina - Last Filed: 06/26/22 03:23> Clinical Impression: Cellulitis Disposition: ADMITTED IP TO THIS [facility] Condition: Fair
--- NOTE | 2022-06-24 20:41 | US ---
EXAMINATION TYPE: US venous doppler duplex LE LT DATE OF EXAM: 06/24/2022 8:17 PM COMPARISON: 11/20/18 CLINICAL HISTORY: swelling. Left calf redness and blisters. Patient states he has had an infection th ere before. No hx of DVT, not on blood thinners SIDE PERFORMED: Left TECHNIQUE: The lower extremity deep venous system is examined utilizing real time linear array sonog elieser with graded compression, doppler sonography and color-flow sonography. VESSELS IMAGED: Common Femoral Vein Deep Femoral Vein Greater Saphenous Vein * Femoral Vein Popliteal Vein Small Saphenous Vein * Proximal Calf Veins (* superficial vessels) Left Leg: No evidence of DVT IMPRESSION: No sign of deep vein thrombosis in the left leg.
[2022-06-24 21:13] LABS: Basophils % (A) 0 %; Eosinophils # (A) 0.1 k/uL (0-0.7); Eosinophils % (A) 1 %; HCT 40.8 % (39.0-53.0); HGB 13.6 gm/dL (13.0-17.5); Lymphocytes # (A) 0.6 k/uL (1.0-4.8); Lymphocytes % (A) 10 %; MCH 31.8 pg (25.0-35.0); MCHC 33.3 g/dL (31.0-37.0); MCV 95.6 fL (80.0-100.0); Mean Platelet Volume 8.9; Monocytes # (A) 0.2 k/uL (0-1.0); Monocytes % (A) 4 %; Neutrophils # (A) 5.2 k/uL (1.3-7.7); Neutrophils % (A) 84 %; Platelet Count 100 k/uL (150-450); RBC 4.27 m/uL (4.30-5.90); RDW 13.9 % (11.5-15.5); WBC 6.2 k/uL (3.8-10.6)
[2022-06-24 21:22] LABS: AST 48 U/L (17-59); African American GFR (CKD) >90 (>60 ml/min/1.73 sqM); Albumin 4.1 g/dL (3.5-5.0); Anion Gap 7 mmol/L; Blood Urea Nitrogen 17 mg/dL (9-20); Calcium 9.2 mg/dL (8.4-10.2); Carbon Dioxide 23 mmol/L (22-30); Chloride 106 mmol/L (98-107); Glucose 183 mg/dL (74-99); Non-African American GFR(CKD) >90 (>60 ml/min/1.73 sqM); Potassium 4.8 mmol/L (3.5-5.1); Sodium 136 mmol/L (137-145); Total Bilirubin 1.2 mg/dL (0.2-1.3); Total Protein 7.2 g/dL (6.3-8.2)
[2022-06-24 21:23] LABS: ALT 31 U/L (4-49); Alkaline Phosphatase 123 U/L (38-126)
--- NOTE | 2022-06-25 00:52 | XR ---
EXAMINATION TYPE: XR tibia fibula LT DATE OF EXAM: 06/25/2022 COMPARISON: 11/03/2018 HISTORY: Pain TECHNIQUE: 4 views FINDINGS: There is left knee prosthesis. Components appear intact. There is vascular calcification. T he ankle joint is intact. No fracture seen. There is some fragmentation at the tibial tubercle consis tent with old osteochondrosis. IMPRESSION: No acute abnormality of the left tibia and fibula and no significant change compared to o ld exam.
[2022-06-25] MEDS ORDERED: VANCOMYCIN IV PER PHARMACY 1 EACH MISC MISCELLANE PRN (01:25)
[2022-06-25] MEDS ORDERED: VANCOMYCIN 1,500 MG in SODIUM CHLORIDE 0.9% 500 ML 500 ML IVPB STA (01:30)
[2022-06-25] MEDS ORDERED: HYDROcodone/APAP 5-325MG 1 EACH TAB PO PRN (03:16)
[2022-06-25] MEDS ORDERED: NALOXONE 0.4 MG/ML 1 ML VIAL IV PRN (03:16)
[2022-06-25] MEDS ORDERED: SODIUM CHLORIDE 0.9% 1,000 ML IV SCH (03:30)
[2022-06-25 07:36] VITALS: TEMP 97.9
[2022-06-25] MEDS ORDERED: AMPICILLIN-SULBACTAM 3 GM in SODIUM CHLORIDE 0.9% 100 ML IVPB SCH (09:00)
[2022-06-25] MEDS ORDERED: CHOLESTYRAMINE (WITH SUGAR) 4 GM PACKET PO SCH (10:10)
[2022-06-25] MEDS ORDERED: PANTOPRAZOLE 40 MG/10 ML VIAL IVP SCH (10:30)
[2022-06-25] MEDS ORDERED: TAMSULOSIN 0.4 MG CAP.ER.24H PO SCH (10:45)
[2022-06-25] MEDS ORDERED: FINASTERIDE 5 MG TAB PO SCH (11:00)
[2022-06-25] MEDS ORDERED: VANCOMYCIN 1,500 MG in SODIUM CHLORIDE 0.9% 500 ML 500 ML IVPB SCH (12:00)
[2022-06-25 13:47] VITALS: BP 97/61; PULSE 65
--- NOTE | 2022-06-25 18:46 | P.HPIM ---
History of Present Illness H&P Date: 06/25/22 Chief Complaint: Left leg cellulitis History of Physical and Discharge Summary: This is a pleasant 82-year-old gentleman, retired , presented to the ER with complaints of left lower leg cellulitis, edema, blisters with achiness 4 days and multiple other medical issues. Denies traumatic injury. Denies scratches, bites.Reports he has previously had edema and cellulitis of the same extremity. Denies fevers or chills. Denies nausea vomiting or diarrhea. Denies lightheadedness, dizziness or focal deficits. Denies chest pain, palpitations or shortness of breath. Venous Doppler report no evidence of DVT of the left leg. Tibia-fibula x-ray revealing no acute abnormality of the left tibia and fibula with no significant change compared to prior exam; some fragmentation at the tibial tubercle consistent with old osteochondrosis. R eceived gentle IV fluid hydration, vancomycin and Unasyn. Afebrile with normal WBC. Lactic acid 1.8 BUN 17, creatinine 0.63. This morning patient reports significant improvement with minimal edema, minimal redness and decreased tenderness. Ambulating without difficulty or pain. Eager for discharge. Blood cultures obtained in the ER and pending. Left leg cultures ordered. Review of Systems Constitutional: Denied any fatigue denied any fever. Cardio vascular: denied any chest pain, palpitations Gastrointestinal denied any nausea vomiting. Reports oily stools. Pulmonary: Denied any shortness of breath cough Neurologic denied any new focal deficits ROS Statement: Those systems with pertinent positive or pertinent negative responses have been documented in the HPI. ROS Other: All systems not noted in ROS Statement are negative. Past Medical History Past Medical History: Cancer, Diabetes Mellitus, Osteoarthritis (OA), Prostate Disorder Additional Past Medical History / Comment(s): PVD, carpal tunnel, neuropathy, hx. prostate cancer 2000-tx. 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 Relates that he has a daughter who is quite involved with. A stepson from his marriage gives him difficulties. As noted he is a reformed smoker. Is not noted to be a significant alcohol user. Retired from the [employer] Smoking Status: Former smoker Past Alcohol Use History: Rare Additional Past Alcohol Use History / Comment(s): quit smoking @age 50. Past Drug Use History: None Reported - Past Family History Mother Family Medical History: No Reported History Brother(s) Family Medical History: Cancer Medications and Allergies Home Medications Medication Instructions Recorded Confirmed Type Finasteride [Proscar] 5 mg PO DAILY 07/23/18 06/25/22 History Tamsulosin [Flomax] 0.4 mg PO BID 07/23/18 06/25/22 History Cholecalciferol [Vitamin D3 (25 25 mcg PO DAILY 07/20/20 06/25/22 History Mcg = 1000 Iu)] Amoxic-Pot Clav 875-125Mg 1 tab PO BID 7 Days #14 tab 06/25/22 Rx [Augmentin 875-125] Calcium Carbonate 500 mg PO DAILY 06/25/22 06/25/22 History Cholestyramine (with Sugar) 4 gm PO TID BETWEEN MEALS #42 06/25/22 Rx [Questran Packet] packet Ergocalciferol [Vitamin D2 (1250 1,250 mcg PO Q7D 06/25/22 06/25/22 History Mcg = 05103 Iu)] Furosemide [Lasix] 20 mg PO DAILY 06/25/22 06/25/22 History Meclizine [Antivert] 12.5 mg PO BID PRN 06/25/22 06/25/22 History Montelukast [Singulair] 10 mg PO HS 06/25/22 06/25/22 History Trospium Chloride [Sanctura] 20 mg PO BID 06/25/22 06/25/22 History traZODone HCL [Desyrel] 50 mg PO HS PRN 06/25/22 06/25/22 History Allergies Allergy/AdvReac Type Severity Reaction Status Date / Time No Known Allergies Allergy Verified 06/25/22 09:43 Physical Exam Vitals: Vital Signs Temp Pulse Pulse Resp BP BP Pulse Ox 06/25/22 07:32 97.9 F 88 16 109/66 99 06/24/22 18:25 98 F 75 16 147/67 95 Intake and Output 06/24/22 06/25/22 06/25/22 22:59 06:59 14:59 Intake Total 815 1200 Balance 815 1200 Intake: Intake, IV Titration 575 1200 Amount Ampicillin-Sulbactam 3 gm 100 In Sodium Chloride 0.9% 100 ml @ 200 mls/hr IVPB Q6H [facility] Rx#:[id number] Sodium Chloride 0.9% 1, 75 600 000 ml @ 75 mls/hr IV . [id number] [place] Rx#:[id number] Vancomycin 1,500 mg In 500 Sodium Chloride 0.9% 500 ml 500 ml @ 167 mls/hr IVPB ONCE STA Rx#: [id number] Vancomycin 1,500 mg In 500 Sodium Chloride 0.9% 500 ml 500 ml @ 167 mls/hr IVPB Q12H [place] Rx#: [id number] Oral 240 Other: # Voids 1 Weight 77.111 kg 77.111 kg PHYSICAL EXAM: VITAL SIGNS: As above GENERAL: 82-year-old male, standard build , alert and oriented 3 ,Sitting up in bed, no acute distress HEENT: Conjunctivae normal. eyes normal. Oral mucosa moist NECK: Supple, No JVD. No thyroid enlargement. No LNs. CARDIOVASCULAR: S1, S2 regular.No murmur RESPIRATION: Breath sounds diminished in the bases. No rhonchi or crackles. No bronchial breathing. ABDOMEN: Soft, nontender . No guarding. no masses palpable. No ascites, No hepatosplenomegaly.Bowel sounds heard. LEGS: Right lower extremity without acute abnormality, left lower extremity with minimal redness and mild edema, honey crusted blisters, positive DP pulses NERVOUS SYSTEM: Cranial N 2-12 grossly normal. Moves all 4 limbs. No focal deficits. Strength and sensation grossly intact. Skin: Warm and dry. Results CBC & Chem 7: 06/24/22 21:03 06/24/22 21:03 Labs: Abnormal Lab Results - Last 24 Hours (Table) 06/24/22 06/24/22 Range/Units 21:03 21:03 RBC 4.27 L (4.30-5.90) m/uL Plt Count 100 L (150-450) k/uL Lymphocytes # 0.6 L (1.0-4.8) k/uL Sodium 136 L (137-145) mmol/L Creatinine 0.63 L (0.66-1.25) mg/dL Glucose 183 H (74-99) mg/dL Thrombosis Risk Factor Assmnt - Choose All That Apply Each Factor Represents 1 point: Swollen legs (current) Each Risk Factor Represents 3 Points: Age 75 years or older Thrombosis Risk Factor Assessment Total Risk Factor Score: 4 Thrombosis Risk Factor Assessment Level: Moderate Risk Assessment and Plan Assessment: Left lower extremity cellulitis in a patient with history of chronic cellulitis. Diabetes mellitus Osteoarthritis Prostate cancer with radiation and chemo PVD Neuropathy Primary nicotine dependence Plan: Continue on current medication regime ,monitoring and symptomatic treatment. Significant improvement in his pain and swelling of left lower extremity. Patient requesting to be discharged today as he has multiple meetings this week that he does not want to miss. Patient will be discharged home today in a stable condition with guarded prognosis after cultures are obtained of left leg, on oral antibiotics of Augmentin and advised to follow-up in clinic with PCP in 3 days. Discharge Medication List Finasteride [Proscar] 5 mg PO DAILY 07/23/18 [History] Tamsulosin [Flomax] 0.4 mg PO BID 07/23/18 [History] Cholecalciferol [Vitamin D3 (25 Mcg = 1000 Iu)] 25 mcg PO DAILY 07/20/20 [ History] Amoxic-Pot Clav 875-125Mg [Augmentin 875-125] 1 tab PO BID 7 Days #14 tab 06/25/22 [Rx] Calcium Carbonate 500 mg PO DAILY 06/25/22 [History] Cholestyramine (with Sugar) [Questran Packet] 4 gm PO TID BETWEEN MEALS #42 packet 06/25/22 [Rx] Ergocalciferol [Vitamin D2 (1250 Mcg = 40268 Iu)] 1,250 mcg PO Q7D 06/25/22 [History] Furosemide [Lasix] 20 mg PO DAILY 06/25/22 [History] Meclizine [Antivert] 12.5 mg PO BID PRN 06/25/22 [History] Montelukast [Singulair] 10 mg PO HS 06/25/22 [History] Trospium Chloride [Sanctura] 20 mg PO BID 06/25/22 [History] traZODone HCL [Desyrel] 50 mg PO HS PRN 06/25/22 [History] The impression and plan of care has been dictated as directed. : I performed a history and examination of this patient, discussed the same with the dictator. I agree with the dictator's note ,documented as a scribe. Any additional findings or plans will be noted.
[2022-06-25] MEDS ORDERED: MONTELUKAST 10 MG TAB PO SCH (21:00)
[2022-06-26] MEDS ORDERED: PANTOPRAZOLE 40 MG TABLET PO SCH (07:30)
== END 2022-06-25 16:23 | disposition home or self-care (01) | DRG 603 ==
LOC: EC 18:06 → 4SSUR 06-25 01:25
PROVIDERS: ADMIT Family Medicine; ATTEND Family Medicine
DX: L03.116 Cellulitis of left lower limb (principal); B95.61 Methicillin susceptible Staphylococcus aureus infection as the cause of diseases classified elsewhere; M19.90 Unspecified osteoarthritis, unspecified site; Z79.899 Other long term (current) drug therapy; E11.42 Type 2 diabetes mellitus with diabetic polyneuropathy; E11.51 Type 2 diabetes mellitus with diabetic peripheral angiopathy without gangrene; M92.502 Unspecified juvenile osteochondrosis, left leg; Z87.891 Personal history of nicotine dependence; Z96.653 Presence of artificial knee joint, bilateral; Z85.46 Personal history of malignant neoplasm of prostate; Z92.21 Personal history of antineoplastic chemotherapy; Z92.3 Personal history of irradiation
CPT/HCPCS: 36415; 80053; 83605; 85025; 87040; 87070; 87075; 87205; 96365; 99285

== ENCOUNTER 2023-02-20 15:07 | Emergency (ER) | payer MEDICARE, OTHER ==
[2023-02-20 15:20] VITALS: RESP 16; TEMP 98
[2023-02-20] MEDS ORDERED: DIPH,PERTUS(ACELL)TETVAC-LF 0.5 ML VIAL IM ONE (15:20)
--- NOTE | 2023-02-20 15:26 | ED ---
General Adult HPI - General Chief complaint: Recheck/Abnormal Lab/Rx Stated complaint: tetnus shot Time Seen by Provider: 02/20/23 15:19 Source: patient, RN notes reviewed Mode of arrival: ambulatory Limitations: no limitations - History of Present Illness Initial comments: 82-year-old male presents emergency Department requesting tetanus update. Patient states that he's been cleaning up his yard, house region states he has multiple cuts states his tetanus is not up-to-date and he is here requesting his tetanus be updated. He offers no complaints. - Related Data Home Medications Medication Instructions Recorded Confirmed Finasteride [Proscar] 5 mg PO DAILY 07/23/18 06/25/22 Tamsulosin [Flomax] 0.4 mg PO BID 07/23/18 06/25/22 Cholecalciferol [Vitamin D3 (25 25 mcg PO DAILY 07/20/20 06/25/22 Mcg = 1000 Iu)] Calcium Carbonate 500 mg PO DAILY 06/25/22 06/25/22 Ergocalciferol [Vitamin D2 (1250 1,250 mcg PO Q7D 06/25/22 06/25/22 Mcg = 79261 Iu)] Furosemide [Lasix] 20 mg PO DAILY 06/25/22 06/25/22 Meclizine [Antivert] 12.5 mg PO BID PRN 06/25/22 06/25/22 Montelukast [Singulair] 10 mg PO HS 06/25/22 06/25/22 Trospium Chloride [Sanctura] 20 mg PO BID 06/25/22 06/25/22 traZODone HCL [Desyrel] 50 mg PO HS PRN 06/25/22 06/25/22 Previous Rx's Medication Instructions Recorded Amoxic-Pot Clav 875-125Mg 1 tab PO BID 7 Days #14 tab 06/25/22 [Augmentin 875-125] Cholestyramine (with Sugar) 4 gm PO TID BETWEEN MEALS #42 06/25/22 [Questran Packet] packet Cephalexin [Keflex] 500 mg PO Q6HR #40 cap 08/08/22 Allergies Allergy/AdvReac Type Severity Reaction Status Date / Time No Known Allergies Allergy Verified 08/08/22 00:03 Review of Systems ROS Statement: Those systems with pertinent positive or pertinent negative responses have been documented in the HPI. ROS Other: All systems not noted in ROS Statement are negative. Past Medical History Past Medical History: Cancer, Diabetes Mellitus, Osteoarthritis (OA), Prostate Disorder Additional Past Medical History / Comment(s): PVD, carpal tunnel, neuropathy, hx. prostate cancer 2000-tx. 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 Absent: scleral icterus, conjunctival injection, periorbital swelling ENT exam: Present: normal exam, mucous membranes moist Neck exam: Present: normal inspection, full ROM. Absent: tenderness, meningismus, lymphadenopathy Respiratory exam: Present: normal lung sounds bilaterally. Absent: respiratory distress, wheezes, rales, rhonchi, stridor Cardiovascular Exam: Present: regular rate, normal rhythm, normal heart sounds. Absent: systolic murmur, diastolic murmur, rubs, gallop, clicks Skin exam: Present: abrasion (Arm) Course Vital Signs 02/20/23 15:16 Temperature 98 F Pulse Rate 76 Respiratory 16 Rate Blood Pressure 162/82 O2 Sat by Pulse 98 Oximetry Medical Decision Making - Medical Decision Making Was pt. sent in by a medical professional or institution (, PA, SMALL MACHINE BINDERY OPERATOR, urgent care, hospital, or [place] [facility] facility...) When possible be specific @ -No Did you speak to anyone other than the patient for history (EMS, parent, family, police, friend...)? What history was obtained from this source @ -No Did you review nursing and triage notes (agree or disagree)? Why? @ -I reviewed and agree with nursing and triage notes Were old charts reviewed (outside hosp., previous admission, EMS record, old EKG, old radiological studies, urgent care reports/EKG's, [place] [facility] facility records)? Report findings @ -No old charts were reviewed Differential Diagnosis (chest pain, altered mental status, abdominal pain women, abdominal pain men, vaginal bleeding, weakness, fever, dyspnea, syncope, headache, dizziness, GI bleed, back pain, seizure, CVA, palpatations, mental health, musculoskeletal)? @ -Tetanus vaccine update, arm abrasion EKG interpreted by me (3pts min.). @ -None X-rays interpreted by me (1pt min.). @ -None done CT interpreted by me (1pt min.). @ -None done U/S interpreted by me (1pt. min.). @ -None done What testing was considered but not performed or refused? (CT, X-rays, U/S, labs)? Why? @ -None What meds were considered but not given or refused? Why? @ -None Did you discuss the management of the patient with other professionals (professionals i.e. , PA, SMALL MACHINE BINDERY OPERATOR, lab, RT, psych nurse, social media marketing analyst, lawn mower operator, teacher, parole or probation officer, case briefer)? Give summary @ -No Was smoking cessation discussed for >3mins.? @ -No Was critical care preformed (if so, how long)? @ -No Were there social determinants of health that impacted care today? How? (Homelessness, low income, unemployed, alcoholism, drug addiction, transportation, low edu. Level, literacy, decrease access to med. care, halfway, rehab)? @ -No Was there de-escalation of care discussed even if they declined (Discuss DNR or withdrawal of care, Hospice)? DNR status @ -No What co-morbidities impacted this encounter? (DM, HTN, Smoking, COPD, CAD, Cancer, CVA, ARF, Chemo, Hep., AIDS, mental health diagnosis, sleep apnea, morbid obesity)? @ -None Was patient admitted / discharged? Hospital course, mention meds given and route, prescriptions, significant lab abnormalities, going to OR and other pertinent info. @ -Discharged patient's tetanus is updated patient has multiple abrasions no current signs of infection patient is discharged in stable condition. Undiagnosed new problem with uncertain prognosis? @ -No Drug Therapy requiring intensive monitoring for toxicity (Heparin, Nitro, Insulin, Cardizem)? @ -No Were any procedures done? @ -No Diagnosis/symptom? @ -Tetanus vaccine update, arm abrasion Acute, or Chronic, or Acute on Chronic? @ -Acute Uncomplicated (without systemic symptoms) or Complicated (systemic symptoms)? @ -Uncomplicated Side effects of treatment? @ -No Exacerbation, Progression, or Severe Exacerbation? @ -No Poses a threat to life or bodily function? How? (Chest pain, [place], MA, pneumonia, PE, COPD, DKA, ARF, appy, cholecystitis, CVA, Diverticulitis, Homicidal, Suicidal, threat to staff... and all critical care pts) @ -No Disposition Clinical Impression: Arm abrasion, Vaccine for [id number], combined Disposition: HOME SELF-CARE Condition: Stable Instructions (If sedation given, give patient instructions): Abrasion (ED) Additional Instructions: Please return to the Emergency Department if symptoms worsen or any other concerns. Is patient prescribed a controlled substance at d/c from ED?: No Referrals: [facility],Clinic [Primary Care Provider] - 1-2 days Time of Disposition: 15:26
[2023-02-20 16:13] VITALS: BP 150/74; PULSE 71
== END 2023-02-20 16:12 | disposition home or self-care (01) ==
LOC: EC 15:07
DX: S40.819A Abrasion of unspecified upper arm, initial encounter (principal); E11.9 Type 2 diabetes mellitus without complications; M19.90 Unspecified osteoarthritis, unspecified site; Z87.891 Personal history of nicotine dependence; Z79.1 Long term (current) use of non-steroidal anti-inflammatories (NSAID); Z23 Encounter for immunization; X58.XXXA Exposure to other specified factors, initial encounter; Y92.096 Garden or yard of other non-institutional residence as the place of occurrence of the external cause
CPT/HCPCS: 90471; 90715; 99282